=== PATIENT | female | born 1995 | race Hispanic/Latino ===

== ENCOUNTER 2019-03-19 11:48 | Emergency (ER) | payer SELFPAY ==
--- NOTE | 2019-03-19 12:57 | RAD REPORT ---
EXAM DESCRIPTION: RAD - Chest Single View - 03/19/2019 12:49 pm CLINICAL HISTORY: Chest pain COMPARISON: None. TECHNIQUE: AP portable chest image was obtained 1245 hours . FINDINGS: Lungs are clear. Heart and vasculature are normal. No measurable pleural effusion and no p neumothorax. No acute bony abnormality seen. No acute aortic findings suspected. IMPRESSION: No acute cardiopulmonary process.
--- NOTE | 2019-03-19 13:33 | ER ---
Nurse's Notes [facility] Name: Anabela Ellington Age: 24 yrs Sex: Female : 1995 Arrival Date: 03/19/2019 Time: 11:52 Bed 15 Private MD: Diagnosis: Chest pain on breathing;Chest pain, unspecified Presentation: 03/19 12:17 Presenting complaint: Patient states: Intermittent chest pain that started last night. aj1 Reports pain is worse when she takes a deep breath. Denies SOB, palpitation, cough, congestion, fever. Transition of care: patient was not received from another setting of care. Onset of symptoms was March 17, 2019. Risk Assessment: Do you want to hurt yourself or someone else? Patient reports no desire to harm self or others. Initial Sepsis Screen: Does the patient meet any 2 criteria? No. Patient's initial sepsis screen is negative. Does the patient have a suspected source of infection? No. Patient's initial sepsis screen is negative. Care prior to arrival: None. 12:17 Method Of Arrival: Ambulatory aj1 12:17 Acuity: THOMPSON 3 aj1 Triage Assessment: 12:18 General: Appears in no apparent distress. comfortable, Behavior is calm, cooperative, aj1 appropriate for age. Pain: Complains of pain in mid-sternal area. Cardiovascular: Patient's skin is warm and dry. [employer]MENTS: 12:18 LMP 02/12/2019 aj1 Historical: - Allergies: 12:18 No Known Allergies; aj1 - Home Meds: 12:18 None [Active]; aj1 - PMHx: 12:18 None; aj1 - PSHx: 12:18 Cholecystectomy; aj1 - Immunization history:: Flu vaccine is not up to date. - Social history:: Smoking status: Patient/guardian denies using tobacco. - Ebola Screening: : Patient denies travel to an Ebola-affected area in the 21 days before illness onset. Screenin:19 Abuse screen: Denies threats or abuse. Denies injuries from another. Nutritional aj1 screening: No deficits noted. Tuberculosis screening: No symptoms or risk factors identified. 13:58 Fall Risk None identified. aj1 Assessment: 12:19 General: Appears in no apparent distress. comfortable, Behavior is calm, cooperative, aj1 appropriate for age. Pain: Complains of pain in mid-sternal area Pain does not radiate. Pain currently is 3 out of 10 on a pain scale. Quality of pain is described as aching, Pain began 1 day ago. Is intermittent, Aggravated by deep breathing. Neuro: Level of Consciousness is awake, alert, obeys commands, Oriented to person, place, time, situation. Cardiovascular: Reports chest pain, Denies lightheadedness, nausea, palpitations, shortness of breath, Heart tones S1 S2 present Patient's skin is warm and dry. Rhythm is sinus rhythm. Respiratory: Airway is patent Respiratory effort is even, unlabored, Respiratory pattern is regular, symmetrical, Breath sounds are clear bilaterally. Denies shortness of breath. GI: No signs and/or symptoms were reported involving the gastrointestinal system. : No signs and/or symptoms were reported regarding the genitourinary system. EENT: No signs and/or symptoms were reported regarding the EENT system. Derm: No signs and/or symptoms reported regarding the dermatologic system. Skin is pink, warm \T\ dry. normal. Musculoskeletal: No signs and/or symptoms reported regarding the musculoskeletal system. Circulation, motion, and sensation intact. 13:02 Reassessment: Patient appears in no apparent distress at this time. No changes from aj1 previously documented assessment. Patient and/or family updated on plan of care and expected duration. Pain level reassessed. Patient is alert, oriented x 3, equal unlabored respirations, skin warm/dry/pink. 13:55 Reassessment: Patient appears in no apparent distress at this time. No changes from aj1 previously documented assessment. Patient and/or family updated on plan of care and expected duration. Pain level reassessed. Patient is alert, oriented x 3, equal unlabored respirations, skin warm/dry/pink. Vital Signs: 12:18 BP 123 / 89; Pulse 83; Resp 18; Temp 99.1; Pulse Ox 100% on R/A; Weight 60.78 kg (R); aj1 Height 5 ft. 6 in. (167.64 cm) (R); Pain 3/10; 13:02 BP 122 / 75; Pulse 98; Resp 18; Pulse Ox 100% on R/A; aj1 13:56 BP 118 / 65; Pulse 88; Resp 18; Pulse Ox 99% on R/A; aj1 12:18 Body Mass Index 21.63 (60.78 kg, 167.64 cm) aj1 ED Course: 11:52 Patient arrived in ED. am2 11:58 Roosevelt Jenkisn PA is PHCP. jr8 11:58 Demond Fontanez MD is Attending Physician. jr8 12:16 Gayle Gilmore, RN is Primary Nurse. aj1 12:18 Triage completed. aj1 12:18 Arm band placed on Patient placed in an exam room. aj1 12:19 Patient has correct armband on for positive identification. ekg monitor tech on. Pulse aj1 ox on. NIBP on. 12:19 No provider procedures requiring assistance completed. Patient maintains SpO2 aj1 saturation greater than 95% on room air. 12:39 EKG done, by military technology manager. reviewed by Demond Fontanez MD. at1 13:04 Urine collected: clean catch specimen, cloudy. mb4 13:36 Verbal reassurance given. mb4 13:36 Curtain closed for privacy. mb4 13:57 Patient did not have IV access during this emergency room visit. aj1 Administered Medications: No medications were administered Outcome: 13:32 Discharge ordered by . jr8 13:57 Discharged to home ambulatory. aj1 13:57 Condition: good 13:57 Discharge instructions given to patient, Instructed on discharge instructions, follow up and referral plans. medication usage, Demonstrated understanding of instructions, follow-up care, medications, Prescriptions given X 1. 13:58 Patient left the ED. aj1 Signatures: Gayle Gilmore, RN RN aj1 Roosevelt Jenkins PA PA jr8 Jacki Aragon, internal communications intern EKG Tat1 Jacki Alejo am2 Denice Ricketts mb4
--- NOTE | 2019-03-19 13:34 | EDPHYS ---
Physician Documentation [facility] Name: Anabela Ellington Age: 24 yrs Sex: Female : 1995 Arrival Date: 03/19/2019 Time: 11:52 Bed 15 Private MD: ED Physician Demond Fontanez HPI: 03/19 12:36 This 24 yrs old Female presents to ER via Ambulatory with complaints of Chest jr8 Pain - sharp. 12:36 Onset: The symptoms/episode began/occurred last night. Associated signs and symptoms: jr8 The patient has no apparent associated signs or symptoms. Modifying factors: The patient symptoms are alleviated by nothing, the patient symptoms are aggravated by deep breaths. Pt reports last night at about 2200 she got a sharp pain in her chest that is made worse by breathing and moving as well as palpation. Pt states episodes of severe pain last about 5 minutes but has some sharp pain that is continuous. Denies any associated sx of N/V or diaphoresis . 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 - Social history:: Smoking status: Patient/guardian denies using tobacco. - Ebola Screening: : Patient denies travel to an Ebola-affected area in the 21 days before illness onset. ROS: 12:36 Constitutional: Negative for fever, chills, and weight loss, Eyes: Negative for injury, jr8 pain, redness, and discharge, ENT: Negative for injury, pain, and discharge, Neck: Negative for injury, pain, and swelling, Cardiovascular: Negative for chest pain, palpitations, and edema, Respiratory: Negative for shortness of breath, cough, wheezing, and pleuritic chest pain, Abdomen/GI: Negative for abdominal pain, nausea, vomiting, diarrhea, and constipation, Back: Negative for injury and pain, MS/Extremity: Negative for injury and deformity, Skin: Negative for injury, rash, and discoloration, Neuro: Negative for headache, weakness, numbness, tingling, and seizure. 12:36 Cardiovascular: Positive for chest pain, of the mid-sternal area. Exam: 12:36 Constitutional: This is a well developed, well nourished patient who is awake, alert, jr8 and in no acute distress. Head/Face: Normocephalic, atraumatic. Eyes: Pupils equal round and reactive to light, extra-ocular motions intact. Lids and lashes normal. Conjunctiva and sclera are non-icteric and not injected. Cornea within normal limits. Periorbital areas with no swelling, redness, or edema. ENT: Nares patent. No nasal discharge, no septal abnormalities noted. Tympanic membranes are normal and external auditory canals are clear. Oropharynx with no redness, swelling, or masses, exudates, or evidence of obstruction, uvula midline. Mucous membranes moist. Neck: Trachea midline, no thyromegaly or masses palpated, and no cervical lymphadenopathy. Supple, full range of motion without nuchal rigidity, or vertebral point tenderness. No Meningismus. Chest/axilla: Normal chest wall appearance and motion. Nontender with no deformity. No lesions are appreciated. Cardiovascular: Regular rate and rhythm with a normal S1 and S2. No gallops, murmurs, or rubs. Normal PMI, no JVD. No pulse deficits. Respiratory: Lungs have equal breath sounds bilaterally, clear to auscultation and percussion. No rales, rhonchi or wheezes noted. No increased work of breathing, no retractions or nasal flaring. Abdomen/GI: Soft, non-tender, with normal bowel sounds. No distension or tympany. No guarding or rebound. No evidence of tenderness throughout. Back: No spinal tenderness. No costovertebral tenderness. Full range of motion. Skin: Warm, dry with normal turgor. Normal color with no rashes, no lesions, and no evidence of cellulitis. MS/ Extremity: Pulses equal, no cyanosis. Neurovascular intact. Full, normal range of motion. Neuro: Awake and alert, GCS 15, oriented to person, place, time, and situation. Cranial nerves II-XII grossly intact. Motor strength 5/5 in all extremities. Sensory grossly intact. Cerebellar exam normal. Normal gait. Vital Signs: 12:18 BP 123 / 89; Pulse 83; Resp 18; Temp 99.1; Pulse Ox 100% on R/A; Weight 60.78 kg (R); aj1 Height 5 ft. 6 in. (167.64 cm) (R); Pain 3/10; 13:02 BP 122 / 75; Pulse 98; Resp 18; Pulse Ox 100% on R/A; aj1 13:56 BP 118 / 65; Pulse 88; Resp 18; Pulse Ox 99% on R/A; aj1 12:18 Body Mass Index 21.63 (60.78 kg, 167.64 cm) [facility] MDM: 11:59 Patient medically screened. [facility] 13:31 Data reviewed: vital signs, nurses notes, EKG, radiologic studies, plain films. Data [facility] interpreted: Pulse oximetry: on room air is 100 %. Interpretation: normal. Counseling: I had a detailed discussion with the patient and/or guardian regarding: the historical points, exam findings, and any diagnostic results supporting the discharge/admit diagnosis, radiology results, the need for outpatient follow up, a family practitioner, to return to the emergency department if symptoms worsen or persist or if there are any questions or concerns that arise at home. Response to treatment: the patient's symptoms have mildly improved after treatment. 03/19 13:06 Order name: Urine Dipstick--Ancillary (enter results) 03/19 13:06 Order name: Urine --Ancillary (enter results) 03/19 12:28 Order name: XRAY Chest (1 view) [facility] 03/19 12:28 Order name: EKG - Nurse/Tech; Complete Time: 12:28 [facility] 03/19 13:48 Order name: Urine --Ancillary [facility] 03/19 13:48 Order name: Urine Dipstick-Ancillary [facility] 03/19 12:29 Order name: Urine Test (obtain specimen); Complete Time: 12:57 [facility] 03/19 12:29 Order name: Urine Dipstick-Ancillary (obtain specimen); Complete Time: 12:57 [facility] Administered Medications: No medications were administered Disposition: 03/20 07:56 Co-signature as Attending Physician, Demond Fontanez MD I agree with the assessment and kdr plan of care. Disposition: 03/19/19 13:32 Discharged to Home. Impression: Chest pain on breathing, Chest pain, unspecified. - Condition is Stable. - Discharge Instructions: Nonspecific Chest Pain, Chest Wall Pain. - Prescriptions for Mobic 7.5 mg Oral Tablet - take 1 tablet by ORAL route once daily take with food; 20 tablet. - Medication Reconciliation Form, Thank You Letter, Antibiotic Education, Prescription Opioid Use form. - Follow up: Private Physician; When: 5 - 6 days; Reason: Recheck today's complaints, Continuance of care, Re-evaluation by your physician. - Problem is new. - Symptoms have improved. Signatures: Dispatcher [employer] EDGayle Brantley RN RN aj1 Demond Fontanze MD MD kdr Roszak, Josh, PA PA jr8 Corrections: (The following items were deleted from the chart) 03/19 13:58 13:32 03/19/2019 13:32 Discharged to Home. Impression: Chest pain on breathing; Chest aj1 pain, unspecified. Condition is Stable. Forms are Medication Reconciliation Form, Thank You Letter, Antibiotic Education, Prescription Opioid Use. Follow up: Private Physician; When: 5 - 6 days; Reason: Recheck today's complaints, Continuance of care, Re-evaluation by your physician. Problem is new. Symptoms have improved. jr8
[2019-03-19 13:44] LABS: Urine Blood TRACE (NEG); Urine Glucose NEGATIVE (NEG); Urine Protein NEGATIVE (NEG)
[2019-03-19] MEDS ORDERED: Ringers Lactate 1,000 ML IV ONE (15:35)
[2019-03-19 15:56] VITALS: TEMP 99.1
[2019-03-19 15:58] VITALS: BP 118/65; O2SAT 99
--- NOTE | 2019-03-20 10:34 | EKG ---
Test Date: 2019-03-19 Test Time: 12:05:51 Hand Crown Pouncer: WAGNER MEASUREMENT RESULTS: Intervals: Rate: 89 NC: 140 QRSD: 66 QT: 362 QTc: 440 Kelly: P: 52 NC: 140 QRS: 79 T: 49 INTERPRETIVE STATEMENTS: Normal sinus rhythm Normal ECG No previous ECG available for comparison Electronically Signed On 03-20-19 10:31:47 CDT by Darrell Rowley
== END 2019-03-19 13:58 | disposition home or self-care (01) ==
LOC: ER 11:48
DX: R07.1 Chest pain on breathing (principal)
CPT/HCPCS: 71045; 81003; 81025; 93005; 99285

== ENCOUNTER 2020-11-01 06:08 | Emergency (ER) | payer SELFPAY ==
[2020-11-01 06:51] LABS: Urine Blood 2+ (Negative); Urine Glucose Negative (Negative); Urine Protein Negative (Negative); Urine Specific Gravity 1.025 (1.005-1.030); Urine pH 5.5 (5.0-7.0)
[2020-11-01 06:59] LABS: Absolute Lymphocytes (CBC) 2.2 K/uL (0.7-4.9); Basophils % 0.7 % (0-1.3); Hematocrit 41.3 % (36.0-45.0); Lymphocytes % 23.4 % (15.3-44.8); MPV 8.7 fL (7.6-11.3); RBC Red Blood Cell Count 4.73 M/uL (3.86-4.86)
[2020-11-01 07:11] LABS: ALT/SGPT 33 U/L (12-78); AST/SGOT 22 U/L (15-37); Albumin 4.1 g/dL (3.4-5.0); Alkaline Phosphatase 53 U/L (45-117); BUN Blood Urea Nitrogen 7 mg/dL (7-18); Bicarbonate 24 mmol/L (21-32); Bilirubin Direct 0.2 mg/dL (0-0.2); Glucose Level 91 mg/dL (74-106); Lipase 91 U/L (73-393); Potassium 3.6 mmol/L (3.5-5.1); Protein, Total 8.8 g/dL (6.4-8.2); Sodium Level 138 mmol/L (136-145)
--- NOTE | 2020-11-01 08:14 | RAD REPORT ---
EXAM DESCRIPTION: CT - Abdomen Pelvis W Contrast - 11/01/2020 7:39 am CLINICAL HISTORY: ABD PAIN COMPARISON: <Comparisons> TECHNIQUE: Biphasic, helical CT imaging of the abdomen and pelvis was performed following 100 ml non -ionic IV contrast. No oral contrast administered. All CT scans are performed using dose optimization technique as appropriate and may include automated exposure control or mA/KV adjustment according to patient size. FINDINGS: No suspicious findings in the lung bases. The liver, spleen, and pancreas show no suspicious findings. Gallbladder and biliary tree are also wi thout suspicious finding. Symmetric renal function is seen with no hydronephrosis or suspicious renal mass. No pyelonephritis o r acute parenchymal process. No bladder abnormalities. No adrenal abnormalities. No gastric dilatation or gastric wall thickening. No dilated small bowel loops. There is fecalized lisa wel content in the distal ileum. A fully intact common normal appendix cannot be confirmed. Proximal appendix appears to be normal near the tip of the cecum. There is some enhancement of the wall. Dista l appendix is not clearly defined. There is some fluid in stranding in the right lower quadrant. Righ t ovary is prominent in size. Ovary is isodense to adjacent on opacified bowel loops. Small amount of free fluid is present in the cul de sac within physiologic limits. There is an involuting [address] left ovarian cyst present. No uterine abnormality. No free air or pneumatosis. No other site of inflammatory stranding. No hernia, mass or bulky lymp hadenopathy. No suspicious bony findings. IMPRESSION: Patient has an abnormal appearance to the right lower quadrant. There is some fluid and stranding in the fatty tissues and the appendix cannot be confirmed as normal along its entire course . Prominent right ovary is present but is isodense to surrounding unopacified bowel and difficult to fu lly characterize. Small involuting cyst present in the left ovary. Appendicitis cannot be excluded based on CT imaging and correlation is needed with any supporting cli nical or laboratory findings. A ruptured or hemorrhagic right ovarian cyst could potentially explain the fluid in stranding. Endovaginal sonography may possibly be helpful to try to better characterize the ovaries.
[2020-11-01 08:36] LABS: Urine Specific Gravity/Preg 1.025 (1.005-1.030)
--- NOTE | 2020-11-01 10:39 | RAD REPORT ---
EXAM DESCRIPTION: US - Transvaginal Study Probe - 11/01/2020 10:31 am CLINICAL HISTORY: ABD PAIN COMPARISON: No comparisons TECHNIQUE: Endovaginal sonography was performed. FINDINGS: Tri laminar pattern of a 12 millimeter thick endometrium seen. This is normal with no mass , polyp or abnormal fluid collection in the endometrial cavity. No myometrial mass. Uterus is normal at 6.5 x 3.9 x 5.5 cm. No blood or fluid in the cul de sac. Both ovaries are identified and normal in size. Doppler evaluation shows normal blood flow within the ovarian stroma. IMPRESSION: Negative endovaginal pelvic ultrasound.
--- NOTE | 2020-11-01 12:35 | ER ---
Nurse's Notes [facility] Name: Anabela Ellington Age: 25 yrs Sex: Female : 1995 Arrival Date: 11/01/2020 Time: 06:11 Bed 18 Private MD: Diagnosis: Abdominal tenderness;Other ovarian cysts-right ovarian cyst rupture Presentation: 11/01 06:53 Chief complaint: Patient states: Reports she started having abdominal pain and a few ea episodes of diarrhea. Coronavirus screen: At this time, the client does not indicate any symptoms associated with coronavirus-19. Ebola Screen: No symptoms or risks identified at this time. Initial Sepsis Screen: Does the patient meet any 2 criteria? No. Patient's initial sepsis screen is negative. Does the patient have a suspected source of infection? No. Patient's initial sepsis screen is negative. Risk Assessment: Do you want to hurt yourself or someone else? Patient reports no desire to harm self or others. Onset of symptoms was November 01, 2020. 06:53 Method Of Arrival: Ambulatory ea 06:53 Acuity: THOMPSON 3 ea Triage Assessment: 06:56 General: Appears uncomfortable, Behavior is calm, cooperative, appropriate for age. ea Pain: Complains of pain in abdomen. Neuro: Level of Consciousness is awake, alert, obeys commands, Oriented to person, place, time. Cardiovascular: Patient's skin is warm and dry. GI: Abdomen is non-distended. Derm: Skin is pink, warm \\T\\ dry. 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 - Social history:: Smoking status: Patient denies any tobacco usage or history of. - Family history:: not pertinent. - Hospitalizations: : No recent hospitalization is reported. Screenin:55 Abuse screen: Denies threats or abuse. Nutritional screening: No deficits noted. ea Tuberculosis screening: No symptoms or risk factors identified. Fall Risk None identified. Assessment: 07:03 General: Appears in no apparent distress. Behavior is calm, cooperative, appropriate ea for age. Pain: Complains of pain in right upper quadrant and left upper quadrant. Neuro: Level of Consciousness is awake, alert, obeys commands, Oriented to person, place, time. Cardiovascular: Patient's skin is warm and dry. Respiratory: Airway is patent Respiratory effort is even, unlabored, Respiratory pattern is regular, symmetrical. Derm: Skin is pink, warm \\T\\ dry. 07:44 Reassessment: Received report from IMELDA Borrero. Pt denies pain, no concerns at this time. ld1 09:37 Reassessment: Patient and/or family updated on plan of care and expected duration. Pain ld1 level reassessed. Patient is alert, oriented x 3, equal unlabored respirations, skin warm/dry/pink. Patient denies any concerns at this time. Notified we are waiting on results. Patient denies pain at this time. 10:40 Reassessment: Patient and/or family updated on plan of care and expected duration. Pain ld1 level reassessed. Patient is alert, oriented x 3, equal unlabored respirations, skin warm/dry/pink. Patient denies pain at this time. 12:24 Reassessment: Patient and/or family updated on plan of care and expected duration. Pain ld1 level reassessed. Patient is alert, oriented x 3, equal unlabored respirations, skin warm/dry/pink. Pt waiting with at bedside for results. Denies any concerns at this time. States "pain went away and hasn't come back." Patient denies pain at this time. 12:30 Reassessment: ERP at bedside discussing POC. ld1 12:45 GI: Bowel sounds present X 4 quads. Abd is soft X 4 quads Abdomen is tender to ld1 palpation in right upper quadrant and left upper quadrant. Vital Signs: 06:53 BP 122 / 83; Pulse 80; Resp 18; Temp 97.6; Pulse Ox 99% ; ea 07:45 BP 110 / 75; Pulse 91; Resp 18; Pulse Ox 100% on R/A; Pain 0/10; ld1 09:37 BP 109 / 74; Pulse 105; Resp 18; Pulse Ox 99% on R/A; Pain 0/10; ld1 10:41 BP 112 / 73; Pulse 91; Resp 18; Pulse Ox 100% on R/A; Pain 0/10; ld1 12:24 BP 118 / 92; Pulse 90; Resp 18; Pulse Ox 100% on R/A; Pain 0/10; ld1 ED Course: 06:11 Patient arrived in ED. bp1 06:25 Scotty Vines MD is Attending Physician. rn 06:55 Triage completed. ea 06:55 Patient has correct armband on for positive identification. Bed in low position. Call ea light in reach. Side rails up X2. 06:56 Arm band placed on right wrist. Patient placed in an exam room, on a stretcher, on ea pulse oximetry. 06:57 No provider procedures requiring assistance completed. Inserted saline lock: 20 gauge ea in left antecubital area, using aseptic technique. Blood collected. 07:09 Annie Morales, RN is Primary Nurse. ld1 07:39 CT Abd/Pelvis - IV Contrast Only In Process Unspecified. EDMS 08:09 Attending Physician role handed off by Scotty Vines MD sona 08:09 Fredrick Drake MD is Attending Physician. sona 10:32 Transvaginal Study (probe) In Process Unspecified. EDMS 12:34 Rosas Wong MD is Referral Physician. sona 12:34 Alex Bess MD is Referral Physician. sona 12:45 IV discontinued, bleeding controlled, No redness/swelling at site. ld1 Administered Medications: 12:30 Drug: TORadol (ketorolac) 30 mg Route: IVP; Site: left antecubital; ld1 Outcome: 12:35 Discharge ordered by . sona 12:45 Discharged to home ambulatory. ld1 12:45 Condition: stable 12:45 Instructed on discharge instructions, follow up and referral plans. medication usage, Demonstrated understanding of instructions, follow-up care, medications. 12:46 Patient left the ED. ld1 Signatures: Dispatcher [employer] EDFL Fredrick Drake MD MD cha Nieto, Roman, MD MD rn Antunez, Elena, RN RN Ainsley Stephens [facility] Annie Morales, IMELDA RN ld1
--- NOTE | 2020-11-01 12:36 | EDPHYS ---
Physician Documentation [facility] Name: Anabela Ellington Age: 25 yrs Sex: Female : 1995 Arrival Date: 11/01/2020 Time: 06:11 Bed 18 Private MD: DIANELYS Physician Fredrick Drake HPI: 11/01 07:10 This 25 yrs old Female presents to ER via Ambulatory with complaints of rn Abdominal Pain. 07:10 The patient presents with abdominal pain. The patient presents with abdominal pain in rn the epigastric area. Onset: The symptoms/episode began/occurred yesterday. The symptoms do not radiate. Associated signs and symptoms: Pertinent positives: diarrhea, Pertinent negatives: blood in stools, fever. The symptoms are described as crampy, intermittent, sharp. Modifying factors: The symptoms are alleviated by nothing, the symptoms are aggravated by nothing. Severity of pain: At its worst the pain was moderate in the emergency department the pain has improved. The patient has not experienced similar symptoms in the past. The patient has not recently seen a physician. LOG SCALER: 07:03 LMP 10/23/2020 ea Historical: - Allergies: 06:55 No Known Allergies; ea - Home Meds: 06:55 None [Active]; ea - PMHx: 06:55 None; ea - PSHx: 06:55 Cholecystectomy; ea - Immunization history:: Adult Immunizations up to date. - Social history:: Smoking status: Patient denies any tobacco usage or history of. - Family history:: not pertinent. - Hospitalizations: : No recent hospitalization is reported. ROS: 07:10 Constitutional: Negative for fever, chills, and weight loss, Eyes: Negative for injury, rn pain, redness, and discharge, Cardiovascular: Negative for chest pain, palpitations, and edema, Respiratory: Negative for shortness of breath, cough, wheezing, and pleuritic chest pain, Abdomen/GI: + abd pain and diarrhea Back: Negative for injury and pain, : Negative for injury, bleeding, discharge, and swelling, MS/Extremity: Negative for injury and deformity, Skin: Negative for injury, rash, and discoloration, Neuro: Negative for headache, weakness, numbness, tingling, and seizure. Exam: 07:10 Constitutional: This is a well developed, well nourished patient who is awake, alert, rn and in no acute distress. Head/Face: Normocephalic, atraumatic. Cardiovascular: Regular rate and rhythm. No pulse deficits. Respiratory: No increased work of breathing, no retractions or nasal flaring. Abdomen/GI: soft, mild epigastric tenderness and periumbilical tenderness Skin: Warm, dry with normal turgor. Normal color with no rashes, no lesions, and no evidence of cellulitis. MS/ Extremity: Pulses equal, no cyanosis. Neurovascular intact. Full, normal range of motion. Equal circumference. Neuro: Awake and alert, GCS 15, oriented to person, place, time, and situation. Cranial nerves II-XII grossly intact. Motor strength 5/5 in all extremities. Sensory grossly intact. Vital Signs: 06:53 BP 122 / 83; Pulse 80; Resp 18; Temp 97.6; Pulse Ox 99% ; ea 07:45 BP 110 / 75; Pulse 91; Resp 18; Pulse Ox 100% on R/A; Pain 0/10; ld1 09:37 BP 109 / 74; Pulse 105; Resp 18; Pulse Ox 99% on R/A; Pain 0/10; ld1 10:41 BP 112 / 73; Pulse 91; Resp 18; Pulse Ox 100% on R/A; Pain 0/10; ld1 12:24 BP 118 / 92; Pulse 90; Resp 18; Pulse Ox 100% on R/A; Pain 0/10; ld1 MDM: 06:25 Patient medically screened. rn 09:26 Differential diagnosis: Menorrhagia, non-specific abd pain, Ovarian Torsion, sona pancreatitis, Pelvic Inflammatory Disease, Tubal Ovarian Abcess, Ureterolithiasis, urinary tract infection. Data reviewed: vital signs, nurses notes, lab test result(s), radiologic studies, CT scan. Data interpreted: virtual customer assistant: rate is 91 beats/min, rhythm is regular, Pulse oximetry: on room air is 100 %. Test interpretation: by ED physician or midlevel provider:. Counseling: I had a detailed discussion with the patient and/or guardian regarding: the historical points, exam findings, and any diagnostic results supporting the discharge/admit diagnosis, lab results, radiology results. 11/01 06:27 Order name: Basic Metabolic Panel rn 11/01 06:27 Order name: CBC with Diff rn 11/01 06:27 Order name: Hepatic Function; Complete Time: 07:33 rn 11/01 06:27 Order name: Lipase; Complete Time: 07:33 rn 11/01 06:27 Order name: Basic Metabolic Panel; Complete Time: 07:33 EDMS 11/01 06:27 Order name: CBC with Automated Diff; Complete Time: 07:33 EDTX 11/01 06:27 Order name: IV Saline Lock; Complete Time: 07:10 rn 11/01 06:27 Order name: Labs collected and sent; Complete Time: 07:10 rn 11/01 06:27 Order name: Urine Test (obtain specimen); Complete Time: 07:10 rn 11/01 06:37 Order name: CT Abd/Pelvis - IV Contrast Only; Complete Time: 09:25 rn 11/01 06:51 Order name: Urine Dipstick-Ancillary; Complete Time: 07:33 EDTX 11/01 06:51 Order name: Urine --Ancillary (enter results); Complete Time: 09:25 [facility] 11/01 09:26 Order name: Transvaginal Study (probe); Complete Time: 12:25 [facility] 11/01 06:27 Order name: Urine Dipstick-Ancillary (obtain specimen); Complete Time: 07:10 rn Administered Medications: 12:30 Drug: TORadol (ketorolac) 30 mg Route: IVP; Site: left antecubital; ld1 Disposition: 11/01/20 12:35 Discharged to Home. Impression: Abdominal tenderness, Other ovarian cysts - right ovarian cyst rupture. - Condition is Stable. - Discharge Instructions: Abdominal Pain, Adult, Ovarian Cyst, Abdominal Pain, Adult, [id number], Ovarian Cyst, [id number], Appendicitis, [id number]. - Prescriptions for Motrin IB 200 mg Oral Tablet - take 2 tablet by ORAL route every 6 hours As needed as needed with food; 30 tablet. - Medication Reconciliation Form, Thank You Letter, Antibiotic Education, Prescription Opioid Use form. - Follow up: Rosas Wong MD; When: 2 - 3 days; Reason: Recheck today's complaints, Re-evaluation by your physician. Follow up: Alex Bess MD; When: Tomorrow; Reason: Recheck today's complaints, Re-evaluation by your physician. - Problem is new. - Symptoms have improved. Signatures: Dispatcher [employer] EDFredrick Ferguson MD MD cha Nieto, Roman, MD MD rn Antunez, Elena RN Annie Ruth ea, RN RN ld1 Corrections: (The following items were deleted from the chart) 12:46 12:35 11/01/2020 12:35 Discharged to Home. Impression: Abdominal tenderness; Other ld1 ovarian cysts - right ovarian cyst rupture. Condition is Stable. Forms are Medication Reconciliation Form, Thank You Letter, Antibiotic Education, Prescription Opioid Use. Follow up: Rosas Wong; When: 2 - 3 days; Reason: Recheck today's complaints, Re-evaluation by your physician. Follow up: Alex Bess; When: Tomorrow; Reason: Recheck today's complaints, Re-evaluation by your physician. Problem is new. Symptoms have improved. sona
[2020-11-01 12:56] VITALS: TEMP 97.6
[2020-11-01] MEDS ORDERED: KETOROLAC 30 MG/ML INJ ONE (12:57)
[2020-11-01 13:10] VITALS: O2SAT 100
[2020-11-01 13:12] VITALS: BP 118/92
== END 2020-11-01 12:46 | disposition home or self-care (01) ==
LOC: ER 06:08
DX: N83.291 Other ovarian cyst, right side (principal)
CPT/HCPCS: 36415; 74177; 76830; 80048; 80076; 81003; 81025; 83690; 85025; 96374; 99284; Q9967

== ENCOUNTER 2021-01-15 10:20 | Emergency (ER) | payer SELFPAY ==
[2021-01-15 11:15] LABS: Absolute Lymphocytes (CBC) 2.5 K/uL (0.7-4.9); Basophils % 0.7 % (0-1.3); Hematocrit 39.1 % (36.0-45.0); Lymphocytes % 36.6 % (15.3-44.8); MPV 8.6 fL (7.6-11.3); RBC Red Blood Cell Count 4.46 M/uL (3.86-4.86)
[2021-01-15 11:30] LABS: Urine Blood 1+ (Negative); Urine Glucose Negative (Negative); Urine Protein Negative (Negative)
[2021-01-15] MEDS ORDERED: NA CHLORIDE 0.9% 1,000 ML ONE (11:33)
[2021-01-15 11:35] LABS: BUN Blood Urea Nitrogen 10 mg/dL (7-18); Bicarbonate 24 mmol/L (21-32); Glucose Level 102 mg/dL (74-106); Potassium 3.2 mmol/L (3.5-5.1); Sodium Level 141 mmol/L (136-145); Troponin (Emerg Dept Use Only) < 0.02 ng/mL (0.0-0.045)
[2021-01-15] MEDS ORDERED: DIAZEPAM 2 MG TABLET PO ONE (12:00)
[2021-01-15] MEDS ORDERED: POTASSIUM CL SA 10 MEQ TAB PO ONE (12:17)
--- NOTE | 2021-01-15 13:25 | RAD REPORT ---
EXAM DESCRIPTION: RAD - Chest Single View - 01/15/2021 1:01 pm CLINICAL HISTORY: DYSPNEA Chest pain. COMPARISON: Chest Single View dated 03/19/2019 FINDINGS: Portable technique limits examination quality. The lungs are grossly clear. The heart is normal in size. No displaced fractures. IMPRESSION: No acute intrathoracic process suspected.
--- NOTE | 2021-01-15 13:55 | ER ---
Nurse's Notes [facility] Name: Cynthia Ellington Age: 25 yrs Sex: Female : 1995 Arrival Date: 01/15/2021 Time: 10:22 Bed 16 Private MD: Diagnosis: Dyspnea, unspecified Presentation: 01/15 10:33 Chief complaint: Patient states: SOB started at 7 am after awaking to go use the 1 restroom. No cough or fever. No N/V/D. States she drank a little yesterday, but denies drug use. Coronavirus screen: Client denies travel out of the [place] in the last 14 days. difficulty breathing, shortness of breath, Client presents with at least one sign or symptom that may indicate coronavirus-19. Standard/surgical mask placed on the client. Ebola Screen: Patient denies travel to an Ebola-affected area in the 21 days before illness onset. Initial Sepsis Screen: Does the patient meet any 2 criteria? HR > 90 bpm. No. Patient's initial sepsis screen is negative. Does the patient have a suspected source of infection? No. Patient's initial sepsis screen is negative. Risk Assessment: Do you want to hurt yourself or someone else? Patient reports no desire to harm self or others. Onset of symptoms was January 15, 2021. 10:33 Method Of Arrival: Ambulatory [facility] 10:33 Acuity: THOMPSON 3 ll1 Triage Assessment: 12:39 Respiratory: Reports shortness of breath at rest Onset: The symptoms/episode tr6 began/occurred this morning, Historical: - Allergies: 10:35 No Known Allergies; ll1 - PMHx: 10:35 None; ll1 - PSHx: 10:35 Cholecystectomy; ll1 - Immunization history:: Client reports having NOT received the Covid vaccine. Flu vaccine is up to date. - Social history:: Smoking status: Patient denies any tobacco usage or history of. - Family history:: not pertinent. - Hospitalizations: : No recent hospitalization is reported. Screenin:38 Abuse screen: Denies threats or abuse. Denies injuries from another. Nutritional tr6 screening: No deficits noted. Tuberculosis screening: No symptoms or risk factors identified. Fall Risk None identified. Assessment: 12:39 Respiratory: Airway is patent. tr6 12:39 General: Appears distressed, uncomfortable, Behavior is anxious, Smells of. Pain: tr6 Denies pain. Neuro: No deficits noted. Cardiovascular: Rhythm is sinus tachycardia. Respiratory: Respiratory effort is even, unlabored, Breath sounds are clear. GI: No deficits noted. : No deficits noted. EENT: No deficits noted. Derm: No deficits noted. Musculoskeletal: No deficits noted. Vital Signs: 10:33 BP 110 / 79; Pulse 111; Resp 18; Temp 97.8; Pulse Ox 100% ; Weight 72.57 kg; Height 5 ll1 ft. 6 in. (167.64 cm); Pain 0/10; 12:00 BP 103 / 68; Pulse 103; Resp 20; Pulse Ox 100% on R/A; tr6 10:33 Body Mass Index 25.82 (72.57 kg, 167.64 cm) ll1 ED Course: 10:22 Patient arrived in ED. mr 10:25 Scotty Vines MD is Attending Physician. rn 10:35 Triage completed. ll1 10:35 Arm band placed on Patient placed in an exam room, on a stretcher. ll1 10:46 EKG done, by ED staff, reviewed by Scotty Vines MD. dh3 11:01 Jerrica Varner, IMELDA is Primary Nurse. tr6 12:38 Patient has correct armband on for positive identification. Bed in low position. Call tr6 light in reach. Side rails up X 1. Pulse ox on. NIBP on. Noise minimized. Visitors limited. Lights dimmed. Moved to private room. 12:38 No provider procedures requiring assistance completed. Inserted saline lock: 18 gauge tr6 in left antecubital area, using aseptic technique. Blood collected. 13:01 XRAY Chest (1 view) In Process Unspecified. EDMS 14:05 IV discontinued, intact, bleeding controlled, No redness/swelling at site. Pressure tr6 dressing applied. Administered Medications: 11:12 Drug: NS 0.9% 1000 ml Route: IV; Rate: 1000 ml; Site: left forearm; tr6 12:07 Follow up: IV Status: Completed infusion; IV Intake: 1000ml tr6 12:07 Drug: Valium (diazepam) 2 mg Route: PO; tr6 12:07 Drug: Potassium Chloride 40 mEq Route: PO; tr6 Intake: 12:07 IV: 1000ml; Total: 1000ml. tr6 Outcome: 13:54 Discharge ordered by . rn 14:05 Discharged to home ambulatory. tr6 14:05 Condition: stable 14:05 Discharge instructions given to patient, Instructed on discharge instructions, follow up and referral plans. 14:16 Patient left the ED. tr6 Signatures: Dispatcher [employer] EDStephanie Shields Roman, MD MD rn [place], [place] [id number] Donny Nascimento RN RN [facility] Jerrica Varner RN RN tr6
--- NOTE | 2021-01-15 13:56 | EDPHYS ---
Physician Documentation [facility] Name: Cynthia Ellington Age: 25 yrs Sex: Female : 1995 Arrival Date: 01/15/2021 Time: 10:22 Bed 16 Private MD: ED Physician Scotty Vines HPI: 01/15 10:33 This 25 yrs old Female presents to ER via Unassigned with complaints of rn Breathing Difficulty. 10:33 The patient has shortness of breath at rest, that woke him/her from sleep. Onset: The rn symptoms/episode began/occurred this morning. Duration: The symptoms are continuous. The patient's shortness of breath is aggravated by nothing, is alleviated by nothing. Associated signs and symptoms: Pertinent positives: This patient does not have any pertinent positive signs or symptoms associated with shortness of breath. Pertinent negatives: chest pain, non-productive cough, productive cough, diaphoresis, dizziness, fever, hemoptysis, loss of consciousness, vomiting. Severity of symptoms: At their worst the symptoms were moderate in the emergency department the symptoms are unchanged. The patient has not experienced similar symptoms in the past. The patient has not recently seen a physician. Reports woke up feeling sob, never happened before, no trauma, no fever/cough/hemoptysis, no runny nose/sore throat. Doesn't feel sick. Has not been covid vaccinated. NO abd pain/vomiting/diarrhea. . Historical: - Allergies: 10:35 No Known Allergies; ll1 - PMHx: 10:35 None; ll1 - PSHx: 10:35 Cholecystectomy; ll1 - Immunization history:: Client reports having NOT received the Covid vaccine. Flu vaccine is up to date. - Social history:: Smoking status: Patient denies any tobacco usage or history of. - Family history:: not pertinent. - Hospitalizations: : No recent hospitalization is reported. ROS: 10:33 Constitutional: Negative for fever, chills, and weight loss, Eyes: Negative for injury, rn pain, redness, and discharge, ENT: Negative for injury, pain, and discharge, Neck: Negative for injury, pain, and swelling, Cardiovascular: Negative for chest pain, and edema, Respiratory: + sob, neg for cough Abdomen/GI: Negative for abdominal pain, nausea, vomiting, diarrhea, and constipation, Back: Negative for injury and pain, : Negative for injury, bleeding, discharge, and swelling, MS/Extremity: Negative for injury and deformity, Skin: Negative for injury, rash, and discoloration, Neuro: Negative for headache, weakness, numbness, tingling, and seizure. Exam: 10:33 Constitutional: This is a well developed, well nourished patient who is awake, alert, rn seems anxious Head/Face: Normocephalic, atraumatic. Eyes: Pupils equal round and reactive to light, extra-ocular motions intact. Lids and lashes normal. Conjunctiva and sclera are non-icteric and not injected. Cornea within normal limits. Periorbital areas with no swelling, redness, or edema. ENT: dry MM, no stridor Neck: Trachea midline, no thyromegaly or masses palpated, and no cervical lymphadenopathy. Supple, full range of motion without nuchal rigidity, or vertebral point tenderness. No Meningismus. Cardiovascular: Tachycardic, regular Respiratory: Mild tachypnea, speaking full sentences. No retractions. Abdomen/GI: soft, non-tender Skin: Warm, dry MS/ Extremity: Pulses equal, no cyanosis. Neuro: Awake and alert, GCS 15, oriented to person, place, time, and situation. Cranial nerves II-XII grossly intact. Motor strength 5/5 in all extremities. Sensory grossly intact. Cerebellar exam normal. Normal gait. Vital Signs: 10:33 BP 110 / 79; Pulse 111; Resp 18; Temp 97.8; Pulse Ox 100% ; Weight 72.57 kg; Height 5 ll1 ft. 6 in. (167.64 cm); Pain 0/10; 12:00 BP 103 / 68; Pulse 103; Resp 20; Pulse Ox 100% on R/A; tr6 10:33 Body Mass Index 25.82 (72.57 kg, 167.64 cm) ll1 MDM: 10:25 Patient medically screened. rn 13:50 Differential diagnosis: Anxiety Reaction Myocardial Infarction pneumonia, Pneumothorax rn Psychogenic pulmonary edema, Pulmonary Embolism reactive airway disease, thyroid abnormality. Data reviewed: vital signs, nurses notes, lab test result(s), EKG, radiologic studies, plain films, and as a result, I will discharge patient. Counseling: I had a detailed discussion with the patient and/or guardian regarding: the historical points, exam findings, and any diagnostic results supporting the discharge/admit diagnosis, lab results, radiology results, the need for outpatient follow up, to return to the emergency department if symptoms worsen or persist or if there are any questions or concerns that arise at home. Special discussion: I discussed with the patient/guardian in detail that at this point there is no indication for admission to the hospital. It is understood, however, that if the symptoms persist or worsen the patient needs to return immediately for re-evaluation. ED course: No acute findings on w/u, neg d-dimer, no ischemia on ECG, neg cxr. No oxygen requirement. Symptoms resolved after valium. Return precautions given and understood. . 01/15 10:32 Order name: Basic Metabolic Panel; Complete Time: 01/15 10:32 Order name: CBC with Diff; Complete Time: 01/15 10:32 Order name: Troponin (emerg Dept Use Only); Complete Time: 01/15 10:33 Order name: D-Dimer; Complete Time: 01/15 10:33 Order name: TSH; Complete Time: rn 01/15 10:32 Order name: XRAY Chest (1 view); Complete Time: 13:45 rn 01/15 10:33 Order name: T4 Free; Complete Time: 01/15 11:30 Order name: Urine Dipstick-Ancillary; Complete Time: 11:43 [facility] 01/15 11:31 Order name: Urine Dipstick-Ancillary [facility] 01/15 12:22 Order name: SARS-COV-2 RT PCR; Complete Time: 12:44 EDIN 01/15 10:32 Order name: EKG; Complete Time: 10:33 rn 01/15 10:32 Order name: Cardiac monitoring; Complete Time: 10:47 rn 01/15 10:32 Order name: EKG - Nurse/Tech; Complete Time: 10: rn 01/15 10:32 Order name: IV Saline Lock; Complete Time: 11:01/15 10:32 Order name: Labs collected and sent; Complete Time: 11:01/15 10:32 Order name: O2 Per Protocol; Complete Time: 11:01/15 10:32 Order name: O2 Sat Monitoring; Complete Time: :01/15 10:33 Order name: Urine Dipstick-Ancillary (obtain specimen); Complete Time: 11:37 rn 01/15 10:33 Order name: Urine Test (obtain specimen); Complete Time: 11:37 rn Administered Medications: 11:12 Drug: NS 0.9% 1000 ml Route: IV; Rate: 1000 ml; Site: left forearm; tr6 12:07 Follow up: IV Status: Completed infusion; IV Intake: 1000ml tr6 12:07 Drug: Valium (diazepam) 2 mg Route: PO; tr6 12:07 Drug: Potassium Chloride 40 mEq Route: PO; tr6 Disposition Summary: 01/15/21 13:54 Discharge Ordered Location: Home rn Problem: new rn Symptoms: have improved rn Condition: Stable rn Diagnosis - Dyspnea, unspecified rn Followup: rn - With: Private Physician - When: As needed - Reason: Recheck today's complaints, Re-evaluation by your physician Discharge Instructions: - Discharge Summary Sheet rn - Shortness of Breath, Adult rn - Managing Anxiety, Adult rn Forms: - Medication Reconciliation Form rn - Thank You Letter rn - Antibiotic pattern chart writer - Prescription Opioid Use rn Signatures: Dispatcher [employer] EDIN Scotty Vines MD MD rn Lewis, Lynsay, RN RN ll1 Jerrica Varner RN RN tr6 Corrections: (The following items were deleted from the chart) 11:31 10:33 CORONAVIRUS+MRGaroLABGaroBRZ ordered. EDIN EDMS 13:54 13:54 Anxiety disorder, unspecified rn rn
[2021-01-15 14:22] VITALS: TEMP 97.8; O2SAT 100
[2021-01-15 14:24] VITALS: BP 103/68
== END 2021-01-15 14:16 | disposition home or self-care (01) ==
LOC: ER 10:20
DX: R06.00 Dyspnea, unspecified (principal); Z20.822 Contact with and (suspected) exposure to COVID-19
CPT/HCPCS: 36415; 71045; 80048; 81003; 84439; 84443; 84484; 85025; 85379; 93005; 96360; 99284; J7030; U0003

== ENCOUNTER 2021-05-21 02:30 | Emergency (ER) | payer SELFPAY ==
[2021-05-21 04:07] LABS: Urine Blood Trace-lysed (Negative); Urine Glucose Negative (Negative); Urine Protein Negative (Negative); Urine Specific Gravity <=1.005 (1.005-1.030); Urine pH 5.5 (5.0-7.0)
[2021-05-21 04:23] LABS: Barbiturates NEGATIVE (NEGATIVE); Benzodiazepines NEGATIVE (NEGATIVE); Cocaine NEGATIVE (NEGATIVE); METHAMPHETAM NEGATIVE (NEGATIVE); Methadone NEGATIVE (NEGATIVE); Opiates NEGATIVE (NEGATIVE); Phencyclidine NEGATIVE (NEGATIVE); THC Cannibis NEGATIVE (NEGATIVE)
[2021-05-21 04:44] LABS: Absolute Lymphocytes (CBC) 1.4 K/uL (0.7-4.9); Basophils % 0.6 % (0-1.3); Lymphocytes % 17.9 % (15.3-44.8); MPV 8.1 fL (7.6-11.3); RBC Red Blood Cell Count 4.22 M/uL (3.86-4.86)
[2021-05-21 05:09] LABS: ALT/SGPT 23 U/L (12-78); AST/SGOT 14 U/L (15-37); Albumin 4.1 g/dL (3.4-5.0); Alkaline Phosphatase 49 U/L (45-117); BUN Blood Urea Nitrogen 10 mg/dL (7-18); Bicarbonate 20 mmol/L (21-32); Bilirubin Direct 0.2 mg/dL (0-0.2); Bilirubin Total 0.8 mg/dL (0.2-1.0); Glucose Level 98 mg/dL (74-106); Magnesium 2.2 mg/dL (1.8-2.4); NT PRO-BNP 40 pg/mL (<125); Potassium 3.4 mmol/L (3.5-5.1); Protein, Total 8.3 g/dL (6.4-8.2); Sodium Level 141 mmol/L (136-145); Troponin (Emerg Dept Use Only) < 0.02 ng/mL (0.0-0.045)
[2021-05-21 05:13] LABS: Protime INR 1.1
[2021-05-21 05:36] LABS: SARS-COV-2 RT PCR NEGATIVE (NEGATIVE)
[2021-05-21] MEDS ORDERED: NA CHLORIDE 0.9% 1,000 ML ONE (06:08)
[2021-05-21] MEDS ORDERED: POTASSIUM CL SA 10 MEQ TAB PO ONE (06:29)
--- NOTE | 2021-05-21 06:30 | ER ---
Nurse's Notes [facility] Name: Cynthia Ellington Age: 26 yrs Sex: Female : 1995 Arrival Date: 05/21/2021 Time: 02:33 Bed 15 Private MD: Diagnosis: Dyspnea Presentation: 05/21 02:49 Chief complaint: Patient states: she feels like she is having difficulty breathing bb since denies fever, has not affected her daily activities she is not sure if it is anxiety and she thought it would go away but it hasn't. She also states she has not had her period this week. Coronavirus screen: difficulty breathing. Ebola Screen: No symptoms or risks identified at this time. Initial Sepsis Screen: Does the patient meet any 2 criteria? No. Patient's initial sepsis screen is negative. Does the patient have a suspected source of infection? No. Patient's initial sepsis screen is negative. Risk Assessment: Do you want to hurt yourself or someone else? Patient reports no desire to harm self or others. Onset of symptoms was May 18, 2021. 02:49 Method Of Arrival: Ambulatory bb 02:49 Acuity: THOMPSON 3 bb Triage Assessment: 07:26 General: Appears. as6 ILLUSIONIST: 02:53 LMP 04/17/2021 bb Historical: - Allergies: 02:53 No Known Allergies; bb - Home Meds: 02:53 None [Active]; bb - PMHx: 02:53 None; bb - PSHx: 02:53 Cholecystectomy; bb - Immunization history:: Adult Immunizations up to date, Client reports having NOT received the Covid vaccine. - Social history:: Smoking status: Patient denies any tobacco usage or history of. Screenin:26 Abuse screen: Denies threats or abuse. Nutritional screening: No deficits noted. as6 Tuberculosis screening: No symptoms or risk factors identified. Fall Risk None identified. Assessment: 07:22 Reassessment: at discharge pt was calm and stable, breathing was even and non labored, as6 no apparent distress noted at time of discharge. Vital Signs: 02:49 BP 125 / 84; Pulse 99; Resp 16 S; Temp 97.9(O); Pulse Ox 99% on R/A; Weight 63.5 kg bb (R); Height 5 ft. 6 in. (167.64 cm) (R); Pain 0/10; 07:21 BP 117 / 74; Pulse 74; Resp 20 S; Pulse Ox 100% on R/A; as6 02:49 Body Mass Index 22.60 (63.50 kg, 167.64 cm) bb ED Course: 02:33 Patient arrived in ED. 02:53 Triage completed. bb 02:53 Arm band placed on Patient placed in an exam room, on a stretcher, on pulse oximetry. bb Family accompanied patient. 03:03 Norberto Esquivel, RN is Primary Nurse. mr2 03:05 Hi Rice MD is Attending Physician. [facility] 03:32 XRAY Chest (1 view) In Process Unspecified. EDMS 07:27 No provider procedures requiring assistance completed. IV discontinued, intact, as6 bleeding controlled, No redness/swelling at site. Pressure dressing applied. Administered Medications: 06:26 Drug: NS 0.9% 1000 ml Route: IV; Rate: 1000 ml; Site: right antecubital; bb 06:27 Drug: Potassium Chloride 20 mEq Route: PO; bb Outcome: 06:29 Discharge ordered by . 7 07:26 Discharged to home ambulatory. as6 07:26 Condition: stable 07:26 Discharge instructions given to patient, Instructed on discharge instructions, follow up and referral plans. Demonstrated understanding of instructions, follow-up care. 07:27 Patient left the ED. as6 Signatures: Dispatcher [employer] Raven Grigsby RN RN Hi Rice MD MD [facility] Tanisha Ambriz Norberto Esquivel RN RN mr2 Jon Machado RN RN as6
--- NOTE | 2021-05-21 06:30 | EDPHYS ---
Physician Documentation [facility] Name: Cynthia Ellington Age: 26 yrs Sex: Female : 1995 Arrival Date: 05/21/2021 Time: 02:33 Bed 15 Private MD: ED Physician Hi Rice HPI: 05/21 03:17 This 26 yrs old Female presents to ER via Ambulatory with complaints of Chest mh7 Tightness, Breathing Difficulty. 03:18 The patient has shortness of breath with light activity. Onset: The symptoms/episode mh7 began/occurred 3 day(s) ago. Duration: The symptoms are intermittent, with no pattern. The patient's shortness of breath is aggravated by exertion, light activity, is alleviated by nothing. Associated signs and symptoms: Pertinent positives: chest pain, Pertinent negatives: non-productive cough, productive cough, diaphoresis, dizziness, fever, hemoptysis, loss of consciousness, nausea, numbness in extremities, visual changes, vomiting. Severity of symptoms: At their worst the symptoms were mild yesterday, in the emergency department the symptoms are unchanged. 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 - Social history:: Smoking status: Patient denies any tobacco usage or history of. ROS: 03:18 Constitutional: Negative for fever, chills, and weight loss, Eyes: Negative for injury, mh7 pain, redness, and discharge, ENT: Negative for injury, pain, and discharge, Neck: Negative for injury, pain, and swelling, Abdomen/GI: Negative for abdominal pain, nausea, vomiting, diarrhea, and constipation, Back: Negative for injury and pain, : Negative for injury, bleeding, discharge, and swelling, MS/Extremity: Negative for injury and deformity, Skin: Negative for injury, rash, and discoloration, Neuro: Negative for headache, weakness, numbness, tingling, and seizure, Psych: Negative for depression, anxiety, suicide ideation, homicidal ideation, and hallucinations, Allergy/Immunology: Negative for hives, rash, and allergies, Endocrine: Negative for neck swelling, polydipsia, polyuria, polyphagia, and marked weight changes, Hematologic/Lymphatic: Negative for swollen nodes, abnormal bleeding, and unusual bruising. Exam: 03:18 Constitutional: This is a well developed, well nourished patient who is awake, alert, mh7 and in no acute distress. Head/Face: Normocephalic, atraumatic. Eyes: Pupils equal round and reactive to light, extra-ocular motions intact. Lids and lashes normal. Conjunctiva and sclera are non-icteric and not injected. Cornea within normal limits. Periorbital areas with no swelling, redness, or edema. ENT: Nares patent. No nasal discharge, no septal abnormalities noted. Tympanic membranes are normal and external auditory canals are clear. Oropharynx with no redness, swelling, or masses, exudates, or evidence of obstruction, uvula midline. Mucous membranes moist. Neck: Trachea midline, no thyromegaly or masses palpated, and no cervical lymphadenopathy. Supple, full range of motion without nuchal rigidity, or vertebral point tenderness. No Meningismus. Chest/axilla: Normal chest wall appearance and motion. Nontender with no deformity. No lesions are appreciated. Cardiovascular: Regular rate and rhythm with a normal S1 and S2. No gallops, murmurs, or rubs. Normal PMI, no JVD. No pulse deficits. Respiratory: Lungs have equal breath sounds bilaterally, clear to auscultation and percussion. No rales, rhonchi or wheezes noted. No increased work of breathing, no retractions or nasal flaring. Abdomen/GI: Soft, non-tender, with normal bowel sounds. No distension or tympany. No guarding or rebound. No evidence of tenderness throughout. Back: No spinal tenderness. No costovertebral tenderness. Full range of motion. Skin: Warm, dry with normal turgor. Normal color with no rashes, no lesions, and no evidence of cellulitis. MS/ Extremity: Pulses equal, no cyanosis. Neurovascular intact. Full, normal range of motion. Neuro: Awake and alert, GCS 15, oriented to person, place, time, and situation. Cranial nerves II-XII grossly intact. Motor strength 5/5 in all extremities. Sensory grossly intact. Cerebellar exam normal. Normal gait. Psych: Awake, alert, with orientation to person, place and time. Behavior, mood, and affect are within normal limits. Vital Signs: 02:49 BP 125 / 84; Pulse 99; Resp 16 S; Temp 97.9(O); Pulse Ox 99% on R/A; Weight 63.5 kg bb (R); Height 5 ft. 6 in. (167.64 cm) (R); Pain 0/10; 07:21 BP 117 / 74; Pulse 74; Resp 20 S; Pulse Ox 100% on R/A; as6 02:49 Body Mass Index 22.60 (63.50 kg, 167.64 cm) bb MDM: 06:27 Differential diagnosis: Anemia Anxiety Reaction asthma, Bronchitis pneumonia, mh7 Pneumothorax Psychogenic pulmonary edema, Pulmonary Embolism reactive airway disease. Data reviewed: vital signs, nurses notes, old medical records, lab test result(s), cardiac enzymes, CBC, electrolytes, EKG, radiologic studies, plain films. Data interpreted: Pulse oximetry: on room air is 99 %. Interpretation: normal. Counseling: I had a detailed discussion with the patient and/or guardian regarding: the historical points, exam findings, and any diagnostic results supporting the discharge/admit diagnosis, lab results, radiology results, the need for outpatient follow up. Response to treatment: the patient's symptoms have resolved after treatment, the patient's blood pressure is in an acceptable range, mental status has returned to baseline, the patient no longer shows bradycardia, the patient is not short of breath, the patient is not tachycardic, the patient's pain is gone, the patient's temperature has normalized. 06:29 Patient medically screened. [facility] 05/21 03:15 Order name: Basic Metabolic Panel [facility] 05/21 03:15 Order name: CBC with Diff; Complete Time: 04:47 [facility] 05/21 03:15 Order name: LFT's; Complete Time: 05:47 [facility] 05/21 03:15 Order name: Magnesium; Complete Time: 05:47 [facility] 05/21 03:15 Order name: NT PRO-BNP; Complete Time: 05:47 [facility] 05/21 03:15 Order name: PT-INR; Complete Time: 05:47 [facility] 05/21 03:15 Order name: Troponin (emerg Dept Use Only); Complete Time: 05:47 [facility] 05/21 03:15 Order name: XRAY Chest (1 view) [facility] 05/21 03:15 Order name: UDS; Complete Time: 04:42 [facility] 05/21 03:15 Order name: D-Dimer; Complete Time: 05:47 [facility] 05/21 03:16 Order name: Basic Metabolic Panel; Complete Time: 05:47 [facility] 05/21 03:16 Order name: COVID-19/FLU A+B (Document "Date of Onset" if Symptomatic); Complete Time: [facility] 05:47 05/21 04:06 Order name: Urine Dipstick-Ancillary; Complete Time: 04:42 [facility] 05/21 04:12 Order name: Test, Serum; Complete Time: 05:47 [facility] 05/21 03:15 Order name: EKG; Complete Time: 03:16 [facility] 05/21 03:15 Order name: Cardiac monitoring [facility] 05/21 03:15 Order name: EKG - Nurse/Tech; Complete Time: 03:57 [facility] 05/21 03:15 Order name: IV Saline Lock [facility] 05/21 03:15 Order name: Labs collected and sent [facility] 05/21 03:15 Order name: O2 Per Protocol [facility] 05/21 03:15 Order name: O2 Sat Monitoring [facility] 05/21 03:15 Order name: Urine Dipstick-Ancillary (obtain specimen) [facility] 05/21 03:15 Order name: Urine Test (obtain specimen) [facility] Administered Medications: 06:26 Drug: NS 0.9% 1000 ml Route: IV; Rate: 1000 ml; Site: right antecubital; bb 06:27 Drug: Potassium Chloride 20 mEq Route: PO; bb Disposition Summary: 05/21/21 06:29 Discharge Ordered Location: Home [facility] Problem: new [facility] Symptoms: have improved [facility] Condition: Stable [facility] Diagnosis - Dyspnea [facility] Followup: [facility] - With: Private Physician - When: 1 - 2 days - Reason: Worsening of condition, Recheck today's complaints, Continuance of care, Re-evaluation by your physician Discharge Instructions: - Discharge Summary Sheet jd3 Forms: - Medication Reconciliation Form [facility] - Thank You Letter [facility] - Antibiotic Education [facility] - Prescription Opioid Use [facility] Signatures: Dispatcher [employer] EDMS Raven Chahal IMELDA RN bb Hi Rice, MD CORLEY mh7
[2021-05-21 07:33] VITALS: TEMP 97.9
[2021-05-21 07:34] VITALS: BP 117/74; O2SAT 100
--- NOTE | 2021-05-21 08:24 | RAD REPORT ---
EXAM DESCRIPTION: RAD - Chest Single View - 05/21/2021 3:33 am CLINICAL HISTORY: SOB COMPARISON: January 15 TECHNIQUE: AP portable chest image was obtained 05/21/2021 3:33 am . FINDINGS: Lungs are clear. Heart and vasculature are normal. No measurable pleural effusion and no p neumothorax. No acute bony abnormality seen. No acute aortic findings suspected. IMPRESSION: No acute cardiopulmonary process. No significant change from comparison study.
--- NOTE | 2021-05-24 08:13 | EKG ---
Test Date: 2021-05-21 Test Time: 03:56:56 Conveyor Operator: MAX MEASUREMENT RESULTS: Intervals: Rate: 98 NC: 140 QRSD: 72 QT: 350 QTc: 446 [place]: P: 64 NC: 140 QRS: 89 T: 40 INTERPRETIVE STATEMENTS: Normal sinus rhythm Normal ECG Compared to ECG 01/15/2021 10:41:59 Sinus tachycardia no longer present T-wave abnormality no longer present Electronically Signed On 05-24-21 08:04:23 CHIEF OPERATOR REFORMER by Darrell Rowley
== END 2021-05-21 07:27 | disposition home or self-care (01) ==
LOC: ER 02:30
DX: R06.00 Dyspnea, unspecified (principal)
CPT/HCPCS: 0240U; 36415; 71045; 80048; 80076; 80307; 81003; 83735; 83880; 84484; 84703; 85025; 85379; 85610; 93005; 99283; J7030

== ENCOUNTER 2023-10-16 16:00 | Emergency (ER) | payer OTHER ==
[2023-10-16] MEDS ORDERED: LIDOCAINE 4% PATCH ONE (16:16)
--- NOTE | 2023-10-16 17:01 | RAD REPORT ---
EXAM DESCRIPTION: RAD - C Spine Ap/Lat - 10/16/2023 4:51 pm CLINICAL HISTORY: PAIN COMPARISON: No comparisons FINDINGS: Cervical bodies are normal in height and alignment.No fracture or acute bony process seen. No disc space narrowing. No prevertebral soft tissue thickening or other suspicious soft tissue finding. IMPRESSION: Negative cervical spine examination.
--- NOTE | 2023-10-16 17:04 | EDPHYS ---
Physician Documentation [facility] Name: Cynthia Ellington Age: 28 yrs Sex: Female : 1995 Arrival Date: 10/16/2023 Time: 16:00 Bed 12 Private MD: ED Physician Bhupinder Rodrigues HPI: 10/15 16:16 This 28 yrs old Female presents to ER via Ambulatory with complaints of Neck ec2 Pain, <24hrs Old. 16:16 Patient arrives today for evaluation of right neck pain. Patient reports that she slept ec2 on her pillow wrong simply woke up with pain in the right neck. Taking Tylenol as well as IcyHot with minimal alleviation in symptoms. No falls injuries or trauma. No red flag symptoms. Patient is 19 weeks otherwise no concerns.. Historical: - Allergies: 16:12 No Known Allergies; ko1 - Home Meds: 16:12 None [Active]; ko1 - PMHx: 16:12 None; ko1 - PSHx: 16:12 Cholecystectomy; ko1 - Immunization history:: Adult Immunizations up to date. - Infectious Disease History:: Denies. - Social history:: Smoking status: Patient denies any tobacco usage or history of. ROS: 16:16 Constitutional: as per hpi ec2 Exam: 16:16 Constitutional: GEN: NAD Head: atraumatic Eyes: EOMI Ears: External ears are ec2 normal. CV: regular rate LUNGS: no respiratory distress ABD: non-distended SKIN: no evidence of rashes MSK: no evidence of trauma, no C/T/L-spine TTP. Right paraspinal TTP. NEURO: moves all extremities equally Vital Signs: 16:08 BP 113 / 80; Pulse 88; Resp 16; Temp 98; Pulse Ox 100% ; ko1 MDM: 16:15 Patient medically screened. ec2 16:16 Data reviewed: vital signs. ED course: Patient arrives today for right neck pain. Will ec2 obtain x-ray of the C-spine. Suspect muscular strain, doubt fracture. Will give the patient a Lidoderm patch for the pain as well.. 16:48 ED course: Reassuring heart tones.. ec2 17:03 ED course: C-spine x-ray independently reviewed and interpreted by me, shows no bony ec2 fracture. Will discharge home. Return precautions given.. 10/15 16:14 Order name: C Spine Ap/Lat XRAY; Complete Time: 17:03 ec2 10/15 16:15 Order name: Heart Tones; Complete Time: 16:24 ec2 Administered Medications: 16:24 Drug: Lidoderm Topical Patch 5 % (700 mg/patch) 1 patches Topical once; leave on for 12 as6 hours; cover most painful area; may cut into smaller pieces Route: Topical; Site: affected area; 17:14 Follow up: Response: No adverse reaction as6 Disposition Summary: 10/16/23 17:03 Discharge Ordered Notes: Location: Home ec2 Condition: Stable ec2 Diagnosis - Strain of muscle, fascia and tendon at neck level ec2 Followup: ec2 - With: Private Physician - When: - Reason: Re-evaluation by your physician Discharge Instructions: - Discharge Summary Sheet ec2 - Neck Contusion, [id number] ec2 Forms: - Medication Reconciliation Form ec2 - Thank You Letter ec2 - Antibiotic Education ec2 - Prescription Opioid Use ec2 - Patient Portal Instructions ec2 - Leadership Thank You Letter ec2 Signatures: Dispatcher [employer] EDJon Boucher RN RN as6 Becki Dangelo RN RN ko1 Bhupinder Rodrigues MD MD ec2 Corrections: (The following items were deleted from the chart) 16:14 16:14 C Spine Ap/Lat+[email or web address] ordered. EDMS EDMS
--- NOTE | 2023-10-16 17:04 | ER ---
Nurse's Notes [facility] Name: Cynthia Ellington Age: 28 yrs Sex: Female : 1995 Arrival Date: 10/16/2023 Time: 16:00 Bed 12 Private MD: Diagnosis: Strain of muscle, fascia and tendon at neck level Presentation: 10/15 16:08 Chief complaint: Patient states: was laying on her side and moved and now her neck ko1 hurts. 19 weeks preg, 1st kid. Coronavirus screen: At this time, the client does not indicate any symptoms associated with coronavirus-19. Ebola Screen: No symptoms or risks identified at this time. Initial Sepsis Screen: Does the patient meet any 2 criteria? No. Patient's initial sepsis screen is negative. Does the patient have a suspected source of infection? No. Patient's initial sepsis screen is negative. Risk Assessment: Do you want to hurt yourself or someone else? Patient reports no desire to harm self or others. Onset of symptoms was October 16, 2023. 16:08 Method Of Arrival: Ambulatory ko1 16:08 Acuity: THOMPSON 4 ko1 Triage Assessment: 16:12 General: Appears in no apparent distress. uncomfortable, Behavior is calm, cooperative, ko1 appropriate for age. Pain: Complains of pain in back of neck. Historical: - Allergies: 16:12 No Known Allergies; ko1 - Home Meds: 16:12 None [Active]; ko1 - PMHx: 16:12 None; ko1 - PSHx: 16:12 Cholecystectomy; ko1 - Immunization history:: Adult Immunizations up to date. - Infectious Disease History:: Denies. - Social history:: Smoking status: Patient denies any tobacco usage or history of. Screenin:29 [facility] ED Fall Risk Assessment (Adult) History of falling in the last 3 months, as6 including since admission No falls in past 3 months (0 pts) Confusion or Disorientation No (0 pts) Intoxicated or Sedated No (0 pts) Impaired Gait No (0 pts) Mobility Assist Device Used No (0 pt) Altered Elimination No (0 pt) Score/Fall Risk Level 0 - 2 = Low Risk Oriented to surroundings, Maintained a safe environment, Educated pt \T\ family on fall prevention, incl call for assistance when getting out of bed, Assessed \T\ reinforced patient's understanding of fall precautions. Abuse screen: Denies threats or abuse. Denies injuries from another. Nutritional screening: No deficits noted. Tuberculosis screening: No symptoms or risk factors identified. Assessment: 16:30 Pain: Complains of pain in back of neck. Musculoskeletal: Range of motion: limited in as6 neck. 17:14 Reassessment: Patient appears in no apparent distress at this time. Patient and/or as6 family updated on plan of care and expected duration. Pain level reassessed. Patient is alert, oriented x 3, equal unlabored respirations, skin warm/dry/pink. Patient states feeling better. Patient states symptoms have improved. Vital Signs: 16:08 BP 113 / 80; Pulse 88; Resp 16; Temp 98; Pulse Ox 100% ; ko1 Vitals: 16:29 Heart Tones 142. as6 ED Course: 16:07 Patient arrived in ED. mg5 16:07 Bhupinder Rodrigues MD is Attending Physician. ec2 16:12 Triage completed. ko1 16:12 Arm band placed on right wrist. Patient placed in an exam room, on a stretcher, on ko1 pulse oximetry, Patient notified of wait time. 16:14 Jon Machado, IMELDA is Primary Nurse. as6 16:30 Bed in low position. Call light in reach. as6 16:53 C Spine Ap/Lat XRAY In Process Unspecified. EDMS 17:14 Provided Education on: follow up, OTC medications . as6 17:14 No provider procedures requiring assistance completed. Patient did not have IV access as6 during this emergency room visit. Administered Medications: 16:24 Drug: Lidoderm Topical Patch 5 % (700 mg/patch) 1 patches Topical once; leave on for 12 as6 hours; cover most painful area; may cut into smaller pieces Route: Topical; Site: affected area; 17:14 Follow up: Response: No adverse reaction as6 Medication: 16:29 VIS not applicable for this client. as6 Outcome: 17:03 Discharge ordered by . ec2 17:14 Discharged to home ambulatory, as6 17:14 Condition: stable 17:14 Discharge instructions given to patient, Instructed on discharge instructions, follow up and referral plans. Demonstrated understanding of instructions, follow-up care, 17:15 Patient left the ED. as6 Signatures: Dispatcher [employer] EDMS Slawson, Jon, RN RN as6 Becki Dangelo RN RN ko1 Gaby Rose mg5 Bhupinder Rodrigues MD MD ec2
[2023-10-16 23:33] VITALS: BP 113/80; TEMP 98; O2SAT 100
== END 2023-10-16 17:15 | disposition home or self-care (01) ==
LOC: ER 16:00
DX: S16.1XXA Strain of muscle, fascia and tendon at neck level, initial encounter (principal)
CPT/HCPCS: 72040; J2001

== ENCOUNTER 2024-09-22 18:13 | Emergency (ER) | payer OTHER ==
--- OUTSIDE RECORDS SUMMARY | 2024-09-22 18:19 | XMS REPORT | Continuity of Care Document ---
Author Name Unknown Address [address] [place] [address] [facility] Address [address] [place] [address] Care Team Providers Care Game Technician Name Role Phone MARCIN BOWEN Primary Care Physician DARIELA Hannon Attending Clinician DARIELA Hannon Attending Clinician MARCIN Du Attending Clinician MARCIN Mcclelland Attending Clinician Dariela Alfonso MD Attending Clinician [phone] Doctor Unassigned, [place] Attending Clinician Kit veliz 2, [facility] Attending Clinician Unavailable Marcin Bowen MD Attending Clinician [phone] ALLIE ROSARIO Attending Clinician Allie Levy Attending Clinician [phone] Unknown, Attending Attending Clinician MARIO Napier Attending Clinician Unavailable Mario Granda DNP Attending Clinician [phone] Darian Morales MD Attending Clinician [phone] SARAH LAWS Attending Clinician Unavailable SARAH LAWS Attending Clinician Unavailable Ultrasound, Conrad-Mfm Attending Clinician UnavailSarah Tavares MD Attending Clinician [phone] WESLEY BOBO Attending Clinician Unavailable WESLEY BOBO Attending Clinician Unavailable Gianluca Boucher MD, Vanessa Attending Clinician [phone] Doctor Unassigned, [place] Attending Clinician U navailable Lab, Ang - Db Attending Clinician Unavailable AMALIA HARDING Attending Clinician Unav ailable Lane Ornelas MD, Pham Attending Clinician + STEVEN CLEVELAND Attending Clinician Unavaila ble Draw, Clc-Bls Lab Attending Clinician Unavailabl e Pathology Attending Clinician Unavailable PATHOLOGY Attending Clinician Unavailable DARIELA MCCULLOUGH Admitting Clinician Dawit Mccullough MD, Dariela Admitting Clinician [phone]- [phone] WESLEY BOBO Admitting Clinician Unavailable Payers Payer Name Policy Type Policy Number Effective Date Expirati on Date Source [facility] [id number] 2023 00:00:00 Problems Condition Name Condition Details Condition Category Status Onset Date Resolution Date Last Treatment Date Treating Clinician Comments Source Encounter for induction of labor Encounter for induction of labor Disease Active - 00:00: 00 [facility] 40 weeks gestation of 40 weeks gestation of Disease Active - 00:00: 00 [facility] Liveborn infant, of black , born in hospital by vaginal delivery Liveborn , of black , born in hospital by vaginal delivery Disease Active -06 00:00: 00 [facility] Anemia of mother in , antepartum Anemia of mother in , antepartum Disease Active 6-20 00:00: 00 [facility] Rubella non-immune status, antepartum Rubella non-immune status, antepartum Disease Active 3-21 00:00: 00 [facility] Cystic fibrosis carrier, 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, antepartum Disease Active 3-21 00:00: 00 [facility] Normal , antepartum Normal , antepartum Disease Active 2-22 00:00: 00 [facility] Acute cholecysti tis Acute cholecysti tis Disease Resolve d 2015-07 00:00: 00 2023-11-12 00:00:00 2023-11-12 16:17:25 [facility] Allergies, Adverse Reactions, Alerts Allergy Name Allergy Type Status Severity Reaction(s) Onset Date Inactive Date Treating Clinician Comments Source NO KNOWN ALLERGIE S Drug Class Active [facility] Social History Social Habit Start Date Stop Date Quantity Comments Source ASSERTION 2023-06-14 00:00:00 [facility] Alcoholic beverage intake 2024-07-29 00:00:00 2024-07-29 00:00:00 Lifetime non-drinker (finding) [facility] History of Social function 2024-04-10 00:00:00 2024-04-10 00:00:00 [facility] Alcohol intake 2023-10-15 00:00:00 2023-10-15 00:00:00 Ex-drinker (finding) [facility] Sex assigned at 1995 00:00:00 1995 00:00:00 [facility] Smoking Status Start Date Stop Date Source Never smoked tobacco [facility] Medications Ordered Medication Name Filled Medication Name Start Date Stop Date Current Medication? Ordering Clinician Indication Dosage Frequency Signature (SIG) Comments Components Source norelgestro min-ethinyl estradiol (XULANE) 150-35 mcg/24 hr patch 2-24 00:00: 00 Yes 1{patch } Apply 1 Patch to skin weekly. [facility] albuterol 90 mcg/actuati on inhaler 1- 00:00: 00 07-29 00:00 :00 No [id number] 2{puff} Inhale 2 Puffs every 6 (six) hours as needed for Wheezing for up to 30 days. [facility] bromphenira mine-pseudo ephedrine-D M (BROMFED DM) 2-30-10 mg/5 mL syrup 1-05 00:00: 00 07-11 05:59 :00 Yes [id number] 5mL Take 5 mL by mouth 4 (four) times daily as needed for Cold symptoms for up to 5 days. [facility] norethindro frannie.estrad ioL-iron (LOESTRIN FE /) 1 mg-20 mcg (21)/75 mg (7) tablet 2023-07 00:00: 00 08-24 00:00 :00 No [id number] 1{tbl} Take 1 tablet by mouth in the morning. [facility] vitamin w/FA tablet 03-07 00:00: 00 07-29 00:00 :00 No [id number] 102 1{tbl} Take 1 tablet by mouth in the morning. [facility] docusate 100 mg capsule 03-07 00:00: 00 07-29 00:00 :00 No [id number] 102 200mg Take 2 capsules by mouth once daily as needed for Constipati on. [facility] ferrous sulfate 325 mg (65 mg iron) tablet 03-07 00:00: 00 07-29 00:00 :00 No [id number] 102 325mg Take 1 tablet by mouth in the morning. [facility] ibuprofen 800 mg tablet 03-07 00:00: 00 07-29 00:00 :00 No [id number] 102 800mg Take 1 tablet by mouth every 8 (eight) hours as needed (pain). Take with food or milk. [facility] witch Philip (TUCKS) 50 % topical pad 03-06 19:30: 00 03-06 18:52 :00 No Topical, ONCE, 1 dose, On Sat03/06/24 at 1430, Routine [facility] rho(D) immune globulin (RHOPHYLAC) injection 300 mcg 03-06 18:27: 20 Yes 300ug [facility] HYDROcodone -acetaminop hen (NORCO 5) tablet 1 tablet 03-06 18:26: 41 Yes 1{tbl} 1 tablet, Oral, Q6HPRN, Starting on Sat03/06/24 at 1326, Until Discontinu ed, Routine, Pain (scale 7-10) [facility] ibuprofen (IBU) tablet 600 mg 03-06 18:26: 41 Yes 600mg 600 mg, Oral, Q6HPRN, Starting on Sat03/06/24 at 1326, Until Discontinu ed, Routine, Pain (scale 4-6) [facility] acetaminoph en (TYLENOL) tablet 650 mg 03-06 18:26: 41 Yes 650mg 650 mg, Oral, Q6HPRN, Starting on Sat03/06/24 at 1326, Until Discontinu ed, Routine, Pain (scale 1-3) [facility] (BENADRYL) tablet 25 mg 03-06 18:26: 41 Yes 25mg [facility] ondansetron (ZOFRAN (PF)) injection 4 mg 03-06 18:26: 41 Yes 4mg [facility] simethicone (GAS RELIEF (SIMETHICON E)) chewable tablet 160 mg 03-06 18:26: 41 Yes 160mg [facility] docusate (COLACE) capsule 200 mg 03-06 18:26: 41 Yes 200mg [facility] magnesium hydroxide (MILK OF MAGNESIA) 400 mg/5 mL suspension 30 mL 03-06 18:26: 41 Yes 30mL [facility] benzocaine- menthol (DERMOPLAST ) 20-0.5 % topical spray 03-06 18:26: 41 Yes Topical, PRN, Starting on Sat03/06/24 at 1326, Until Discontinu ed, Routine, Perineum discomfort [facility] fentaNYL-ro pivacaine 2 mcg/mL-0.1 % (PF) in NS 200 mL epidural infusion RTU 03-06 14:17: 00 03-07 01:02 :00 No Intra-op [facility] miSOPROStol (CYTOTEC) quarter-tab let 25 mcg 03-06 06:00: 00 03-06 18:27 :19 No 25ug 25 mcg, Vaginal, Q4H ABX, First dose (after last modificati on) on Sat03/06/24 at 0100, Until Discontinu ed, Routine [facility] FENTanyl (PF) (SUBLIMAZE) injection 100 mcg 03-06 05:18: 47 03-06 18:27 :19 No 100ug 100 mcg, Slow IV Push, Q2HPRN, Starting on Sat03/06/24 at 0018, Until Sat03/06/24 at 1327, Routine, Pain (scale 7-10) [facility] lactated ringers IV infusion 500 mL 03-06 05:18: 47 03-06 18:27 :19 No 500mL at 999 mL/hr, 500 mL, IV Infusion, PRN - SEE INSTRUCTIO NS, Starting on Sat03/06/24 at 0018, Until Sat03/06/24 at 1327, Routine [facility] D5W-LR IV infusion 1,000 mL 03-06 05:18: 47 03-06 18:27 :19 No 1000mL at 1-125 mL/hr, IV Infusion, TITRATE, Starting on Sat03/06/24 at 0018, Until Sat03/06/24 at 1327, Routine [facility] vit no.124/iron /folic ( VITAMIN ORAL) 5-14 16:01: 21 03-07 00:00 :00 No Take by mouth. [facility] vit no.124/iron /folic ( VITAMIN ORAL) 4-16 16:06: 58 Yes Take by mouth. [facility] vit no.124/iron /folic ( VITAMIN ORAL) 2-22 14:07: 14 Yes Take by mouth. [facility] Immunizations Ordered Immunization Name Filled Immunization Name Date Status Comments Source Flu Injectable MDCK Pres-Free (FLUCELVAX) 2024-02-25 00:00:00 Completed [facility] Flu Injectable MDCK Pres-Free (FLUCELVAX) 2024-02-25 00:00:00 Completed [facility] TDAP 2023-12-19 00:00:00 Completed [facility] TDAP 2023-12-19 00:00:00 Completed [facility] Influenza Virus Vaccine Quad IM, Preserv and ABX Free 6 MO-64 YRS (FLUCELVAX) 2023-08-22 00:00:00 Completed [facility] Influenza Virus Vaccine Quad IM, Preserv and ABX Free 6 MO-64 YRS (FLUCELVAX) 2023-08-22 00:00:00 Completed [facility] Influenza Virus Vaccine Quad IM, Preserv and ABX Free 6 MO-64 YRS (FLUCELVAX) Unknown Completed [facility] Influenza Virus Vaccine Quad IM, Preserv and ABX Free 6 MO-64 YRS (FLUCELVAX) Unknown Completed [facility] Influenza Virus Vaccine Quad IM, Preserv and ABX Free 6 MO-64 YRS (FLUCELVAX) Unknown Completed [facility] Influenza Virus Vaccine Quad IM, Preserv and ABX Free 6 MO-64 YRS (FLUCELVAX) Unknown Completed [facility] Influenza Virus Vaccine Quad IM, Preserv and ABX Free 6 MO-64 YRS (FLUCELVAX) Unknown Completed [facility] Influenza Virus Vaccine Quad IM, Preserv and ABX Free 6 MO-64 YRS (FLUCELVAX) Unknown Completed [facility] TDAP Unknown Completed [facility] Influenza Virus Vaccine Quad IM, Preserv and ABX Free 6 MO-64 YRS (FLUCELVAX) Unknown Completed [facility] Influenza Virus Vaccine Quad IM, Preserv and ABX Free 6 MO-64 YRS (FLUCELVAX) Unknown Completed [facility] TDAP Unknown Completed [facility] Influenza Virus Vaccine Quad IM, Preserv and ABX Free 6 MO-64 YRS (FLUCELVAX) Unknown Completed [facility] TDAP Unknown Completed [facility] Influenza Virus Vaccine Quad IM, Preserv and ABX Free 6 MO-64 YRS (FLUCELVAX) Unknown Completed [facility] TDAP Unknown Completed [facility] Influenza Virus Vaccine Quad IM, Preserv and ABX Free 6 MO-64 YRS (FLUCELVAX) Unknown Completed [facility] TDAP Unknown Completed [facility] Influenza Virus Vaccine Quad IM, Preserv and ABX Free 6 MO-64 YRS (FLUCELVAX) Unknown Completed [facility] TDAP Unknown Completed [facility] Influenza Virus Vaccine Quad IM, Preserv and ABX Free 6 MO-64 YRS (FLUCELVAX) Unknown Completed [facility] TDAP Unknown Completed [facility] Influenza Virus Vaccine Quad IM, Preserv and ABX Free 6 MO-64 YRS (FLUCELVAX) Unknown Completed [facility] TDAP Unknown Completed [facility] Influenza Virus Vaccine Quad IM, Preserv and ABX Free 6 MO-64 YRS (FLUCELVAX) Unknown Completed [facility] TDAP Unknown Completed [facility] Influenza Virus Vaccine Quad IM, Preserv and ABX Free 6 MO-64 YRS (FLUCELVAX) Unknown Completed [facility] TDAP Unknown Completed [facility] Influenza Virus Vaccine Quad IM, Preserv and ABX Free 6 MO-64 YRS (FLUCELVAX) Unknown Completed [facility] TDAP Unknown Completed [facility] Influenza Virus Vaccine Quad IM, Preserv and ABX Free 6 MO-64 YRS (FLUCELVAX) Unknown Completed [facility] TDAP Unknown Completed [facility] Influenza Virus Vaccine Quad IM, Preserv and ABX Free 6 MO-64 YRS (FLUCELVAX) Unknown Completed [facility] TDAP Unknown Completed [facility] Influenza Virus Vaccine Quad IM, Preserv and ABX Free 6 MO-64 YRS (FLUCELVAX) Unknown Completed [facility] TDAP Unknown Completed [facility] Flu Injectable MDCK Pres-Free (FLUCELVAX) Unknown Completed [facility] Influenza Virus Vaccine Quad IM, Preserv and ABX Free 6 MO-64 YRS (FLUCELVAX) Unknown Completed [facility] TDAP Unknown Completed [facility] Flu Injectable MDCK Pres-Free (FLUCELVAX) Unknown Completed [facility] Influenza Virus Vaccine Quad IM, Preserv and ABX Free 6 MO-64 YRS (FLUCELVAX) Unknown Completed [facility] TDAP Unknown Completed [facility] Flu Injectable MDCK Pres-Free (FLUCELVAX) Unknown Completed [facility] Influenza Virus Vaccine Quad IM, Preserv and ABX Free 6 MO-64 YRS (FLUCELVAX) Unknown Completed [facility] TDAP Unknown Completed [facility] Influenza Virus Vaccine Quad IM, Preserv and ABX Free 6 MO-64 YRS (FLUCELVAX) Unknown Completed [facility] TDAP Unknown Completed [facility] Flu Injectable MDCK Pres-Free (FLUCELVAX) Unknown Completed [facility] Influenza Virus Vaccine Quad IM, Preserv and ABX Free 6 MO-64 YRS (FLUCELVAX) Unknown Completed [facility] TDAP Unknown Completed [facility] Flu Injectable MDCK Pres-Free (FLUCELVAX) Unknown Completed [facility] Influenza Virus Vaccine Quad IM, Preserv and ABX Free 6 MO-64 YRS (FLUCELVAX) Unknown Completed [facility] TDAP Unknown Completed [facility] Influenza Virus Vaccine Quad IM, Preserv and ABX Free 6 MO-64 YRS (FLUCELVAX) Unknown Completed [facility] Flu Injectable MDCK Pres-Free (FLUCELVAX) Unknown Completed [facility] Influenza Virus Vaccine Quad IM, Preserv and ABX Free 6 MO-64 YRS (FLUCELVAX) Unknown Completed [facility] TDAP Unknown Completed [facility] Flu Injectable MDCK Pres-Free (FLUCELVAX) Unknown Completed [facility] Influenza Virus Vaccine Quad IM, Preserv and ABX Free 6 MO-64 YRS (FLUCELVAX) Unknown Completed [facility] TDAP Unknown Completed [facility] Influenza Virus Vaccine Quad IM, Preserv and ABX Free 6 MO-64 YRS (FLUCELVAX) Unknown Completed [facility] Influenza Virus Vaccine Quad IM, Preserv and ABX Free 6 MO-64 YRS (FLUCELVAX) Unknown Completed [facility] Influenza Virus Vaccine Quad IM, Preserv and ABX Free 6 MO-64 YRS (FLUCELVAX) Unknown Completed [facility] Influenza Virus Vaccine Quad IM, Preserv and ABX Free 6 MO-64 YRS (FLUCELVAX) Unknown Completed [facility] Vital Signs Vital Name Observation Time Observation Value Comments S ource Systolic blood pressure 2024-07-29 21:16:00 101 mm[Hg] [facility] Diastolic blood pressure 2024-07-29 21:16:00 72 mm[Hg] [facility] Heart rate 2024-07-29 21:16:00 102 /min [facility] Respiratory rate 2024-07-29 21:16:00 18 /min [facility] Body height 2024-07-29 21:16:00 170.2 cm [facility] Body weight 2024-07-29 21:16:00 71.033 kg Univ [facility] BMI 2024-07-29 21:16:00 24.53 kg/m2 [facility] Oxygen saturation in Arterial blood by Pulse oximetry 2024-07-29 21:16:00 96 /min [facility] Systolic blood pressure 2024-07-05 18:05:00 117 mm[Hg] [facility] Diastolic blood pressure 2024-07-05 18:05:00 87 mm[Hg] [facility] Heart rate 2024-07-05 18:05:00 101 /min [facility] Body temperature 2024-07-05 18:05:00 36.67 Lashay [facility] Respiratory rate 2024-07-05 18:05:00 18 /min [facility] Body weight 2024-07-05 18:05:00 70.444 kg [facility] BMI 2024-07-05 18:05:00 24.32 kg/m2 [facility] Oxygen saturation in Arterial blood by Pulse oximetry 2024-07-05 18:05:00 97 /min [facility] Systolic blood pressure 2024-06-25 21:20:00 103 mm[Hg] [facility] Diastolic blood pressure 2024-06-25 21:20:00 67 mm[Hg] [facility] Heart rate 2024-06-25 21:20:00 89 /min [facility] Body temperature 2024-06-25 21:20:00 36.72 [place] [facility] Respiratory rate 2024-06-25 21:20:00 18 /min [facility] Body height 2024-06-25 21:20:00 170.2 cm [facility] Body weight 2024-06-25 21:20:00 71.305 kg [facility] BMI 2024-06-25 21:20:00 24.62 kg/m2 [facility] Systolic blood pressure 2024-04-10 16:36:00 102 mm[Hg] [facility] Diastolic blood pressure 2024-04-10 16:36:00 69 mm[Hg] [facility] Heart rate 2024-04-10 16:36:00 83 /min [facility] Body temperature 2024-04-10 16:36:00 36.67 [place] [facility] Respiratory rate 2024-04-10 16:36:00 18 /min [facility] Body height 2024-04-10 16:36:00 170.2 cm [facility] Body weight 2024-04-10 16:36:00 65.998 kg [facility] BMI 2024-04-10 16:36:00 22.79 kg/m2 [facility] Systolic blood pressure 2024-03-07 18:20:00 98 mm[Hg] [facility] Diastolic blood pressure 2024-03-07 18:20:00 58 mm[Hg] [facility] Heart rate 2024-03-07 18:20:00 80 /min [facility] Respiratory rate 2024-03-07 18:20:00 16 /min [facility] Oxygen saturation in Arterial blood by Pulse oximetry 2024-03-07 18:20:00 100 /min [facility] Body temperature 2024-03-07 13:18:00 36.28 [place] [facility] Body height 2024-03-06 05:36:00 170.2 cm [facility] Body weight 2024-03-06 05:36:00 75.751 kg [facility] BMI 2024-03-06 05:36:00 26.16 kg/m2 [facility] Systolic blood pressure 2024-03-05 21:15:00 119 mm[Hg] [facility] Diastolic blood pressure 2024-03-05 21:15:00 85 mm[Hg] [facility] [place] Heart rate 2024-03-05 21:15:00 107 /min [facility] Respiratory rate 2024-03-05 21:15:00 18 /min [facility] Body height 2024-03-05 21:15:00 170.2 [facility] 2024-03-05 21:15:00 75.751 [facility] BMI 2024-03-05 21:15:00 26.16 kg/m2 [facility] Systolic blood pressure 2024-02-25 21:17:00 109 mm[Hg] [facility] Diastolic blood pressure 2024-02-25 21:17:00 78 mm[Hg] [facility] Heart rate 2024-02-25 21:17:00 88 /min [facility] Res[facility] rate 2024-02-25 21:17:00 16 /min [facility] Body height 2024-02-25 21:17:00 170.2 cm [facility] Body weight 2024-02-25 21:17:00 73.483 kg [facility] BMI 2024-02-25 21:17:00 25.37 kg/m2 [facility] Systolic blood pressure 2024-02-18 18:07:00 131 mm[Hg] [facility] [place] Diastolic blood pressure 2024-02-18 18:07:00 83 mm[Hg] [facility] Heart rate 2024-02-18 18:07:00 100 /min [facility] Respiratory rate 2024-02-18 18:07:00 18 /min [facility] Body height 2024-02-18 18:07:00 170.2 cm [facility] [place] Body weight 2024-02-18 18:07:00 73.483 kg [facility] [place] BMI 2024-02-18 18:07:00 25.37 kg/m2 [facility] Systolic blood pressure 2024-02-11 15:38:00 110 mm[Hg] [facility] Diastolic blood pressure 2024-02-11 15:38:00 72 mm[Hg] [facility] Heart rate 2024-02-11 15:38:00 99 /min [facility] Respiratory rate 2024-02-11 15:38:00 18 /min [facility] Body height 2024-02-11 15:38:00 170.2 cm [facility] Body weight 2024-02-11 15:38:00 72.576 kg [facility] BMI 2024-02-11 15:38:00 25.06 kg/m2 [facility] Heart rate 2024-02-01 23:15:00 112 /min [facility] Oxygen saturation in Arterial blood by Pulse oximetry 2024-02-01 23:15:00 100 /min [facility] Systolic blood pressure 2024-02-01 21:30:00 117 mm[Hg] [facility] Diastolic blood pressure 2024-02-01 21:30:00 78 mm[Hg] [facility] Body temperature 2024-02-01 21:24:00 36.56 Lashay [facility] Respiratory rate 2024-02-01 21:24:00 18 /min [facility] Body height 2024-02-01 21:02:00 170.2 cm [facility] Body weight 2024-02-01 21:02:00 70.67 kg [facility] BMI 2024-02-01 21:02:00 24.40 kg/m2 [facility] Systolic blood pressure 2024-01-24 13:29:00 115 mm[Hg] [facility] Diastolic blood pressure 2024-01-24 13:29:00 75 mm[Hg] [facility] Heart rate 2024-01-24 13:29:00 76 /min [facility] Respiratory rate 2024-01-24 13:29:00 16 /min [facility] Body height 2024-01-24 13:29:00 170.2 cm [facility] Body weight 2024-01-24 13:29:00 71.668 kg [facility] BMI 2024-01-24 13:29:00 24.75 kg/m2 [facility] Systolic blood pressure 2024-01-10 14:10:00 98 mm[Hg] [facility] Diastolic blood pressure 2024-01-10 14:10:00 67 mm[Hg] [facility] Heart rate 2024-01-10 14:10:00 102 /min [facility] Respiratory rate 2024-01-10 14:10:00 18 /min [facility] Body height 2024-01-10 14:10:00 170.2 cm [facility] Body weight 2024-01-10 14:10:00 68.493 kg [facility] BMI 2024-01-10 14:10:00 23.65 kg/m2 Univ [facility] Systolic blood pressure 2023-12-19 20:45:00 119 mm[Hg] [facility] Diastolic blood pressure 2023-12-19 20:45:00 74 mm[Hg] [facility] Heart rate 2023-12-19 20:45:00 80 /min [facility] Body height 2023-12-19 20:45:00 170.2 cm [facility] Body weight 2023-12-19 20:45:00 68.13 kg [facility] BMI 2023-12-19 20:45:00 23.52 kg/m2 [facility] Systolic blood pressure 2023-11-12 21:08:00 109 mm[Hg] [facility] Diastolic blood pressure 2023-11-12 21:08:00 71 mm[Hg] [facility] Heart rate 2023-11-12 21:08:00 90 /min [facility] Respiratory rate 2023-11-12 21:08:00 18 /min [facility] Body height 2023-11-12 21:08:00 170.2 cm [facility] Body weight 2023-11-12 21:08:00 63.957 kg [facility] BMI 2023-11-12 21:08:00 22.08 kg/m2 [facility] Systolic blood pressure 2023-10-15 21:10:00 98 mm[Hg] [facility] Diastolic blood pressure 2023-10-15 21:10:00 64 mm[Hg] [facility] Heart rate 2023-10-15 21:10:00 86 /min [facility] Respiratory rate 2023-10-15 21:10:00 18 /min [facility] Body height 2023-10-15 21:10:00 170.2 cm [facility] Body weight 2023-10-15 21:10:00 62.143 kg [facility] BMI 2023-10-15 21:10:00 21.46 kg/m2 [facility] Oxygen saturation in Arterial blood by Pulse oximetry 2023-09-19 21:09:00 100 /min [facility] Systolic blood pressure 2023-09-19 21:09:00 98 mm[Hg] [facility] Diastolic blood pressure 2023-09-19 21:09:00 67 mm[Hg] [facility] Heart rate 2023-09-19 21:09:00 95 /min [facility] Body temperature 2023-09-19 21:09:00 36.67 Lashay [facility] Respiratory rate 2023-09-19 21:09:00 16 /min [facility] Body height 2023-09-19 21:09:00 170.2 cm [facility] Body weight 2023-09-19 21:09:00 60.192 kg [facility] BMI 2023-09-19 21:09:00 20.78 kg/m2 [facility] Systolic blood pressure 2023-08-22 20:06:00 113 mm[Hg] [facility] Diastolic blood pressure 2023-08-22 20:06:00 73 mm[Hg] [facility] Heart rate 2023-08-22 20:06:00 77 /min [facility] Respiratory rate 2023-08-22 20:06:00 18 /min [facility] Body height 2023-08-22 20:06:00 170.2 cm [facility] Body weight 2023-08-22 20:06:00 59.421 kg [facility] BMI 2023-08-22 20:06:00 20.52 kg/m2 [facility] Procedures Procedure Date / Time Performed Performing Clinicia n Source POCT TEST 2024-06-25 21:27:00 Henri Mcculloughsol [facility] CBC WITH DIFF 2024-03-07 09:16:00 Leila Mccullough [facility] CENTRAL NEURAXIAL BLOCK 2024-03-06 14:00:00 Darian Morales [facility] CBC WITH DIFF 2024-03-06 05:56:00 Leila Mccullough [facility] HEPATITIS B SURFACE ANTIGEN 2024-03-06 05:56:00 [facility] HB ABO GROUPING 2024-03-06 05:56:00 [facility], [facility] RHO (D) IMMUNE GLOBULIN 2024-03-06 05:56:00 [facility] ANGELA ONLY - RPR 2024-03-06 05:56:00 [facility] HIV 1/2 AG-AB WITH REFLEX 2024-03-06 05:56:00 [facility] POCT URINALYSIS W/O SPECIFIC GRAVITY 2024-03-05 00:00:00 Sadia [facility] FLU VACC ([id number]), 6 MO-64 YRS, .5ML, IM, TIV (FLUCELVAX) 2024-02-25 21:32:40 [facility] POCT URINALYSIS W/O SPECIFIC GRAVITY 2024-02-25 00:00:00 [facility], [facility] POCT URINALYSIS W/O SPECIFIC GRAVITY 2024-02-18 00:00:00 Sadia [facility] SECOND AND THIRD TRIMESTER ULTRASOUND 2024-02-17 18:52:00 Sadia [facility] DSU PRE-OP 2024-02-11 18:33:04 Doctor Morro zuñiga, [place] [facility] POCT URINALYSIS W/O SPECIFIC GRAVITY 2024-02-11 00:00:00 Sadia [facility] POCT URINALYSIS W/O SPECIFIC GRAVITY 2024-01-24 00:00:00 Sadia [facility] POCT URINALYSIS W/O SPECIFIC GRAVITY 2024-01-10 00:00:00 Sadia [facility] TDAP VACCINE, >11 YRS, IM 2023-12-19 20:59:30 JeffDempsey, [facility] POCT URINALYSIS W/O SPECIFIC GRAVITY 2023-12-19 00:00:00 Sadia [facility] POCT URINALYSIS W/O SPECIFIC GRAVITY 2023-11-12 00:00:00 Sadia [facility] SCANNED LAB RESULTS 2023-10-31 16:08:11 Doctor Kit leyva, [place] [facility] SECOND AND THIRD TRIMESTER ULTRASOUND 2023-10-23 22:06:10 Sadia [facility] POCT URINALYSIS W/O SPECIFIC GRAVITY 2023-10-15 00:00:00 Sadia [facility] POCT URINALYSIS W/O SPECIFIC GRAVITY 2023-09-19 00:00:00 Sadia [facility] <14 WEEKS US LIMITED 2023-08-22 20:29:22 Sadia [facility] FLU VACC ([id number]), 6 MO-64 YRS, .5ML, IM, QUAD (FLUCELVAX) 2023-08-22 20:18:53 Sadia [facility] ASSIGNMENT OF BENEFITS 2023-08-22 19:38:18 Docto r Unassigned, [place] [facility] POCT TEST 2023-08-22 00:00:00 Sadia [facility] POCT URINALYSIS W/O SPECIFIC GRAVITY 2023-08-22 00:00:00 [facility] Encounters Start Date/Time End Date/Time Encounter Type Admission Type Attending [facility] Facility Care Department Encounter ID Source 2024-02-01 21:39:27 Outpatient P PATIÑONAE Dickey, DARIELAMike PATIÑOSUSHANT Dickey [facility] ROSE MARY [id number] [facility] 2024-08-21 00:00:00 2024-08-24 08:04:48 [facility] 1..114 350.1.13.10 4.2.7.2.686 [id number] [facility] 2024-07-20 00:00:00 2024-08-22 18:19:23 Patient Secure Msg Doctor Unassigned, [place] Doctor Unassigned, [place] [facility] 1..114 350.1.13.10 4.2.7.2.686 [id number] [facility] 2024-08-19 00:00:00 2024-08-19 10:14:55 [facility]phone [facility] 1..114 350.1.13.10 4.2.7.2.686 [id number] [facility] 2024-02-11 00:00:00 2024-08-15 07:07:49 Orders Only Doctor Unassigned, [place] Doctor Unassigned, [place] [facility] (EUFEMIA) 1..114 350.1.13.10 4.2.7.2.686 [id number] [facility] 2023-10-31 00:00:00 2024-08-15 02:06:01 Orders Only Doctor Unassigned, [place] Doctor Unassigned, [place] [facility] (EUFEMIA) 1.2.840.114 350.1.13.10 4.2.7.2.686 [id number] [facility] 2024-07-29 16:15:00 2024-07-29 16:15:00 [facility] [employer] Visit 2, Adc Lab ObMarcin Douglas 2, [facility] 1.2.840.114 350.1.13.10 4.2.7.2.686 [id number] [facility] 2024-07-29 15:00:00 2024-07-29 15:29:42 Outpatient R OBI-CARLOS , MARCIN OBI-CARLOS , MARCIN [facility] [id number] [facility] 2024-07-29 15:00:00 2024-07-29 15:29:42 Office Visit Oblachelle-Carlos Marcin [facility] 1.2.840.114 350.1.13.10 4.2.7.2.686 [id number] [facility] 2024-07-21 15:00:00 2024-07-21 15:00:00 Outpatient R OBI-CARLOS , MARCIN OBI-CARLOS , MARCIN [facility] [id number] [facility] 2024-07-05 11:40:00 2024-07-05 12:32:38 Outpatient R ALLIE ROSARIO [facility] [id number] [facility] 2024-07-05 11:40:00 2024-07-05 12:32:38 Urgent Care Allie Rosario Unknown, Attending [facility] 1..840.114 350.1.13.10 4.2.7.2.686 [id number] [facility] 2024-06-25 15:00:00 2024-06-25 15:35:53 Outpatient R CAROLYNN S, DARIELA PATIÑO-SUSHANT S [facility] [id number] [facility] 2024-06-25 15:00:00 2024-06-25 15:35:53 Office Visit Carolynn dickey [facility] 1.840.114 350.1.13.10 4.2.7.2.686 [id number] [facility] 2024-06-22 16:30:00 2024-06-22 16:30:00 Outpatient R MARIO GRANDA [facility] [id number] [facility] 2024-06-19 00:00:00 2024-06-19 12:09:15 Telephone Mario Granda [facility] 1.840.114 350.1.13.10 4.2.7.2.686 [id number] [facility] 2024-06-15 16:30:00 2024-06-15 16:30:00 Outpatient R MARIO GRANDA [facility] [id number] [facility] 2024-05-27 00:00:00 2024-05-27 15:38:31 Telephone Carolynn dickey [facility] 1.840.114 350.1.13.10 4.2.7.2.686 [id number] [facility] 2024-05-21 15:00:00 2024-05-21 15:00:00 Outpatient R CAROLYNN Dickey, DARIELA PATIÑ[facility]USHANT [facility] [id number] [facility] 2024-04-30 00:00:00 2024-04-30 17:05:33 [facility] 1.2.840.114 350.1.13.10 4.2.7.2.686 [id number] [facility] 2024-04-30 09:15:00 2024-04-30 09:15:00 Outpatient R PATIÑO-SUSHANT S, DARIELA PATIÑO-SUSHANT S, DARIELA [facility] [id number] [facility] 2024-04-23 10:30:00 2024-04-23 10:30:00 Outpatient R PATIÑO-SUSHANT S, DARIELA PATIÑO-SUSHANT S, DARIELA [facility] [id number] [facility] 2024-04-22 00:00:00 2024-04-22 10:54:41 Telephone Carolynn sLeilal [facility] 1.840.114 350.1.13.10 4.2.7.2.686 [id number] 134 [id number] [facility] 2024-04-10 11:15:00 2024-04-10 11:56:22 Outpatient R PATIÑO-SUSHANT S, DARIELA PATIÑO-SUSHANT S, DARIELA [facility] [id number] [facility] 2024-04-10 11:15:00 2024-04-10 11:56:22 Routine Visit Eduardi sHenriDariela [facility] BUILD[facility] 1..840.114 350.1.13.10 4.2.7.2.686 [id number] 134 [id number] [facility] 2024-02-26 00:00:00 2024-03-28 18:20:43 Patient Secure Msg Mimi-Sushant s, Dariela [facility] BUILD[facility] 1.2.840.114 350.1.13.10 4.2.7.2.686 [id number] 134 [id number] [facility] 2024-02-11 00:00:00 2024-03-14 18:21:16 Patient Secure Msg Doctor Unassigned, [place] Doctor Unassigned, [place] [facility] 1.2.840.114 350.1.13.10 4.2.7.2.686 [id number] 134 [id number] [facility] 2024-03-06 00:10:00 2024-03-07 16:00:00 Inpatient P PATIÑO-SUSHANT S, DARIELA PATIÑO-SUSHANT S, DARIELA [facility] RO[facility] MARY [id number] [facility] 2024-03-06 00:10:00 2024-03-07 16:00:00 Hospital Encounter Patiño-Sushant s, Dariela [facility] 1.2840.114 350.1.13.10 4.2.7.2.686 [id number] [facility] 2024-03-06 09:05:00 2024-03-06 14:59:00 Anesthesia Event Darian Morales [facility] 1.2.840.114 350.1.13.10 4.2.7.2.686 [id number] [facility] 2024-03-05 15:45:00 2024-03-05 16:28:47 Outpatient R PATIÑO-SUSHANT S, DARIELA PATIÑO-SUSHANT S, DARIELA [facility] [id number] [facility] 2024-03-05 15:45:00 2024-03-05 16:28:47 Routine Visit Patiño-Sushant s, Dariela [facility] 1.2.840.114 350.1.13.10 4.2.7.2.686 [id number] 134 [id number] [facility] 2024-03-03 00:00:00 2024-03-03 14:11:23 Telephone Henri Hutchinssol [facility] N[facility] BUILD[facility] 1.2.840.114 350.1.13.10 4.2.7.2.686 [id number] [facility] 2024-01-29 00:00:00 2024-02-29 18:19:22 Patient Secure Msg Eduardi sHenriDariela [facility] N[facility] BU[facility] 1.2.840.114 350.1.13.10 4.2.7.2.686 [id number] [facility] 2024-02-28 00:00:00 2024-02-28 11:30:46 [facility] 1.2.840.114 350.1.13.10 4.2.7.2.686 [id number] 134 [id number] [facility] 2024-02-25 00:00:00 2024-02-25 16:59:17 Telephone Dariela Hutchins [facility] N[facility]ILD[facility] 1.2.840.114 350.1.13.10 4.2.7.2.686 [id number] 134 [id number] [facility] 2024-02-25 16:15:00 2024-02-25 16:32:20 Outpatient R PATIÑO-SUSHANT S, DARIELA PATIÑO-SUSHANT S, DARIELA [facility] [id number] [facility] 2024-02-25 16:15:00 2024-02-25 16:32:20 Routine Visit Henri Hutchinssol [facility] BU[facility] 1.2.840.114 350.1.13.10 4.2.7.2.686 [id number] 134 [id number] [facility] 2024-02-18 13:15:00 2024-02-18 13:23:54 Outpatient R PATIÑO-SUSHANT S, DARIELA PATIÑO-SUSHANT S, DARIELA [facility] [id number] [facility] 2024-02-18 13:15:00 2024-02-18 13:23:54 Routine Visit Patiño-Sushant s, Dariela [facility] 1.2.840.114 350.1.13.10 4.2.7.2.686 [id number] 134 [id number] [facility] 2024-02-17 13:30:00 2024-02-17 13:51:39 Outpatient P SARAH LAWS SHANNON [facility] [id number] [facility] 2024-02-17 13:30:00 2024-02-17 13:51:39 [employer] Visit Ultrasound, Sarah Church [facility] [employer] POLICE OFFICER [facility] 1.2.840.114 350.1.13.10 4.2.7.2.686 [id number] [facility] 2024-02-11 00:00:00 2024-02-11 16:08:11 Telephone Patiño-Sushant s, Dariela [facility] 1.2.840.114 350.1.13.10 4.2.7.2.686 [id number] 134 [id number] [facility] 2024-02-11 11:15:00 2024-02-11 11:30:00 [employer] Visit 2, Adc Lab Patiño-Sushant s, Dariela 2, Adc Lab [facility] BUILD[facility] 1.2.840.114 350.1.13.10 4.2.7.2.686 [id number] [facility] 2024-02-11 10:30:00 2024-02-11 10:57:20 Outpatient R PATIÑO-SUSHANT S, DARIELA PATIÑO-SUSHANT S, DARIELA [facility] [id number] [facility] 2024-02-11 10:30:00 2024-02-11 10:57:20 Routine Visit Henri Hutchinssol [facility] 1.2.840.114 350.1.13.10 4.2.7.2.686 [id number] 134 [id number] [facility] 2024-01-05 00:00:00 2024-02-08 18:22:08 Patient Secure Msg Carolynn s [facility] 1.2.840.114 350.1.13.10 4.2.7.2.686 [id number] [facility] 2024-02-01 16:23:00 2024-02-01 20:42:00 Outpatient P WESLEY BOBO VIEN [facility] ROSE MARY [id number] [facility] 2024-02-01 16:23:00 2024-02-01 20:42:00 Hospital Encounter Vanessa Valadez Vien Cam [facility] AT [facility] 1..840.114 350.1.13.10 4.2.7.2.686 [id number] [facility] 2023-12-25 00:00:00 2024-01-25 18:20:04 Patient Secure g Eduardi keli [facility] 1.2840.114 350.1.13.10 4.2.7.2.686 [id number] [facility] 2024-01-24 08:00:00 2024-01-24 08:42:06 Outpatient R CAROLYNN Dickey D[facility]ELAANNEMARIE [facility] [id number] [facility] 2024-01-24 08:00:00 2024-01-24 08:42:06 Routine Visit Leila Hutchinsl [facility] BU[facility] 1.2840.114 350.1.13.10 4.2.7.2.686 [id number] 134 [id number] [facility] 2024-01-16 00:00:00 2024-01-16 13:11:01 Telephone Dariela Hutchins [facility] 1.2.840.114 350.1.13.10 4.2.7.2.686 [id number] [facility] 2024-01-10 09:00:00 2024-01-10 09:26:39 Outpatient R ACROLYNN Dickey, DARIELA [facility]USHANT S, [facility] [id number] [facility] 2024-01-10 09:00:00 2024-01-10 09:26:39 Routine Visit Carolynn sLeilal [facility] 1.2840.114 350.1.13.10 4.2.7.2.686 [id number] [facility] 2024-01-07 08:00:00 2024-01-07 08:00:00 Outpatient R MIMI-SUSHANT S, DARIELA MIMI-SUSHANT S, DARIELA [facility] [id number] [facility] 2023-12-31 00:00:00 2024-01-02 12:33:49 Telephone Henri Hutchinssol [facility] 1.0.114 350.1.13.10 4.2.7.2.686 [id number] 134 [id number] [facility] 2023-11-27 00:00:00 2023-12-28 18:15:39 Patient Secure Msg Doctor Unassigned, [place] [facility] 1.20.114 350.1.13.10 4.2.7.2.686 [id number] 134 [id number] [facility] 2023-12-19 16:00:00 2023-12-19 16:03:18 Outpatient R PATIÑO-SUSHANT S, DARIELA [facility]USHANT S, [facility] [id number] [facility] 2023-12-19 16:00:00 2023-12-19 16:03:18 Routine Visit Patiño-Sushant s, [facility] 1.2840.114 350.1.13.10 4.2.7.2.686 [id number] [facility] 2023-11-27 07:30:00 2023-11-27 09:19:23 Outpatient R PATIÑO-SUSHANT S, DARIELA PATIÑO-SUSHANT S, [facility] [id number] [facility] 2023-11-27 07:30:00 2023-11-27 07:45:00 [employer] Visit Lab, Ang - Mehul Patiño-Sushant s, [facility] 1..840.114 350.1.13.10 4.2.7.2.686 [id number] [facility] 2023-11-12 16:15:00 2023-11-12 16:17:52 Outpatient R PATIÑO-SUSHANT S, DARIELA PATIÑO-SUSHANT S, [facility] [id number] [facility] 2023-11-12 16:15:00 2023-11-12 16:17:52 Routine Visit Patiño-Sushant s, [facility] 1.2840.114 350.1.13.10 4.2.7.2.686 [id number] [facility] 2023-10-23 13:00:00 2023-10-23 14:10:01 Outpatient AMALIA MARSH [facility] [id number] [facility] 2023-10-23 13:00:00 2023-10-23 14:10:01 [employer] Visit Ultrasound, Amalia Zambrano [facility] [employer] POLICE OFFICER [facility] 1.0.114 350.1.13.10 4.2.7.2.686 [id number] [facility] 2023-10-15 16:00:00 2023-10-15 16:20:51 Routine Visit Patiño-Sushant s [facility] 1.0.114 350.1.13.10 4.2.7.2.686 [id number] [facility] 2023-10-15 16:00:00 2023-10-15 16:20:51 Outpatient R PATIÑO-SUSHANT S, DARIELA PATIÑO-SUSHANT S, [facility] [id number] [facility] 2023-09-19 17:00:00 2023-09-19 17:08:38 [employer] Visit Lab, Conrad Patiño-Sushant s [facility] 1..114 350.1.13.10 4.2.7.2.686 [id number] [facility] 2023-09-19 16:15:00 2023-09-19 16:28:58 Outpatient R PATIÑO-SUSHANT S, DARIELA PATIÑO-SUSHANT S, [facility] [id number] [facility] 2023-09-19 16:15:00 2023-09-19 16:28:58 Routine Visit Patiño-Sushant s, [facility] 1..114 350.1.13.10 4.2.7.2.686 [id number] [facility] 2023-09-05 00:00:00 2023-09-05 00:00:00 Telephone Carolynn dickey [facility] 1.840.114 350.1.13.10 4.2.7.2.686 [id number] [facility] 2023-08-27 11:15:00 2023-08-27 11:30:00 [employer] Visit Draw, [facility] Pathology [facility] 1.0.114 350.1.13.10 4.2.7.2.686 [id number] [facility] 2023-08-27 11:15:00 2023-08-27 11:15:00 Outpatient R PATHOLOGY [facility] [id number] [facility] 2023-08-23 00:00:00 2023-08-23 00:00:00 Telephone Carolynn dickey [facility] 1.0.114 350.1.13.10 4.2.7.2.686 [id number] [facility] 2023-08-22 14:00:00 2023-08-22 14:43:28 Outpatient R DARIELA HUTCHINS [facility] [id number] [facility] 2023-08-22 14:00:00 2023-08-22 14:30:00 Initial Visit Carolynn dickey Dariela [facility] 1.840.114 350.1.13.10 4.2.7.2.686 [id number] [facility] 2023-08-22 00:00:00 2023-08-22 00:00:00 Orders Only Doctor Unassigned, [place] [facility] 1.840.114 350.1.13.10 4.2.7.2.686 [id number] [facility] Results Test Description Test Time Test Comments Results Result Co mments Source [facility] with [id number] 11:08:01* Test Item Value Reference Range Interpretation Comme nts WBC (test code = 6690-2) 14.77 4.30-11.10 H RBC (test code = 789-8) 3.47 3.93-5.25 L HGB (test code = 718-7) 10.0 g/dL 11.6-15.0 L HCT (test code = 4544-3) 31.2 % 35.7-45.2 L MCV (test code = 787-2) 89.9 fL 80.6-95.5 MCH (test code = 785-6) 28.8 pg 25.9-32.8 MCHC (test code = 786-4) 32.1 g/dL 31.6-35.1 RDW-SD (test code = 31096-5) 43.6 fL 39.0-49.9 RDW-CV (test code = 788-0) 13.2 % 12.0-15.5 PLT (test code = 777-3) 254 166-358 MPV (test code = 43646-1) 11.9 fL 9.5-12.9 NRBC/100 WBC (test code = 0186045871) 0.0 0.0-10.0 NRBC x10^3 (test code = 2437064658) See_Comment [Automated message] The system which generated this result transmitted reference range: 10*3/?L. The reference range was not used to interpret this result as normal/abnormal. GRAN MAT (NEUT) % (test code = 770-8) 77.5 % IMM GRAN % (test code = 5514195684) 1.10 % LYMPH % (test code = 736-9) 12.7 % MONO % (test code = 5905-5) 8.1 % EOS % (test code = 713-8) 0.4 % BASO % (test code = 706-2) 0.2 % GRAN MAT x10^3(ANC) (test code = 4986105756) 11.45 10*3/uL 1.88-7.09 H IMM GRAN x10^3 (test code = 1975847568) 0.16 10*3/uL 0.00-0.06 H LYMPH x10^3 (test code = 731-0) 1.87 10*3/uL 1.32-3.29 MONO x10^3 (test code = 742-7) 1.20 10*3/uL 0.33-0.92 H EOS x10^3 (test code = 711-2) 0.06 10*3/uL 0.03-0.39 BASO x10^3 (test code = 704-7) 0.03 10*3/uL 0.01-0.07 Lab Interpretation (test code = 23531-9) Abnormal [facility] IMMUNE [id number] 19:31:33* Test Item Value Reference Range Interpretation Comme nts RHIG CANDIDATE? (test code = 5188) No- see comment Patient is not a candidate for RhIg- Patient is Rh Positive.Performed at [facility] Laboratory Services - [facility] Blood [address] [place], [place] [id number] Free: [phone] No. [id number] [facility] WorthHepatitis B Surface [id number] 17:32:23 * Test Item Value Reference Range Interpretation Comme nts HBsAg Semi-Quantitative (tyson t code = 5195-3) 0.07 Negative [facility] Worth[facility] Neuraxial [id number] 14:00:00 Darian Morales MD ? ? 03/06/2024 ?8:04 PM Central Neuraxial Block Date/Time: 03/06/2024 9:00 AM Performed by: Darian Morales MDAuthorized by: Darian Morales MD ?Patient Location: OBReason forBlock: OB request, Patient request, Labor analgesia, Surgical anesthesia and Post-op pain managementStaff: ?Anesthesiologist: Darian Morales MD ?Performed by: anesthesiologistPreanesthetic Checklist: patient identified, IV checked, risks and benefits explained, monitors and equipment checked, timeout performed, pre- op evaluation, site marked and anesthesia consentProcedure: ?Type of Neuraxial: Epidural and Continuous ? Sterility Prep cap, drape, gloves, hand hygiene and mask ? ?Sedation Level no sedation ?Patient Position: sitting ?Prep: Betadine and patient draped ? ?Monitoring: heart rate, continuous pulse ox, heart rate / toco and NIBP ?Location: lumbar (1-5) ?Lumbar: L2-L3 ?Approach: midline ? ?Technique: GRAZYNA air and catheter ?Guidance with: landmark technique}Epidural/Spinal Gilbert and/or Catheter: ?Epidural/Spinal Kit: imgScrimmage ([employer]) ?Needle Type: Tuohy ?Needle Gauge: 17 G ?Needle Length: 3.5 in (8.89 cm) ?Needle Insertion Depth: 5 ?Catheter Type: multiport ? ?Catheter Size: 18 G ? ?Catheter at Skin Depth: 12 ?Number of Attempts: 1 ?Test Dose: lidocaine 1.5%with epinephrine 1-to-200,000 and negative ? ?Dose: 3 cc ? ?Catheter Securement Method: surgical tape and TegadermAssessment: ?Sensory Level: below T10 ?Lumbar: T12 ?Block Outcome: positive pain relief and successful block ? ?Procedure Assessment: patient tolerated procedure well with no complicatio nsNotes: ? Smooth and atraumatic, (+) Local, (+) [facility]Univers[facility]2 Ag-Ab with [id number] 08:51:15* Test Item Value Reference Range Interpretation Comme nts HIV Semi-quantitative (test code = 17733-0) 0.16 Negative ABRIL (test code = ABRIL) Non-reactive for HIV-1 antigen and HIV-1/HIV-2 antibodies. ?No laboratory evidence of HIV infection. ?Repeat in 2-4 weeks if acute HIV infection is suspected. [facility] or Angela Only - [id number] 08:32:07* Test Item Value Reference Range Interpretation Comme nts RPR (Qualitative) (test code = 29068-8) Nonreactive Nonreactive Lab Interpretation (test cod e = 60034-2) Normal [facility] with [id number] 07:44:47* Test Item Value Reference Range Interpretation Comme nts WBC (test code = 6690-2) 8.71 4.30-11.10 RBC (test code = 789-8) 3.56 3.93-5.25 L HGB (test code = 718-7) 10.3 g/dL 11.6-15.0 L HCT (test code = 4544-3) 31.6 % 35.7-45.2 L MCV (test code = 787-2) 88.8 fL 80.6-95.5 MCH (test code = 785-6) 28.9 pg 25.9-32.8 MCHC (test code = 786-4) 32.6 g/dL 31.6-35.1 RDW-SD (test code = 94254-8) 43.5 fL 39.0-49.9 RDW-CV (test code = 788-0) 13.2 % 12.0-15.5 PLT (test code = 777-3) 270 166-358 MPV (test code = 10568-0) 12.1 fL 9.5-12.9 NRBC/100 WBC (test code = 0936136295) 0.0 0.0-10.0 NRBC x10^3 (test code = 0707324505) See_Comment [Automated messa ge] The system which generated this result transmitted reference range: 10*3/?L. The reference range was not used to interpret this result as normal/abnormal. GRAN MAT (NEUT) % (test code = 770-8) 65.8 % IMM GRAN % (test code = 4787167458) 1.00 % LYMPH % (test code = 736-9) 21.7 % MONO % (test code = 5905-5) 10.4 % EOS % (test code = 713-8) 0.9 % BASO % (test code = 706-2) 0.2 % GRAN MAT x10^3(ANC) (test code = 4449768340) 5.72 10*3/uL 1.88-7.09 IMM GRAN x10^3 (test code = 5566734210) 0.09 10*3/uL 0.00-0.06 H LYMPH x10^3 (test code = 731-0) 1.89 10*3/uL 1.32-3.29 MONO x10^3 (test code = 742-7) 0.91 10*3/uL 0.33-0.92 EOS x10^3 (test code = 711-2) 0.08 10*3/uL 0.03-0.39 BASO x10^3 (test code = 704-7) 0.01-0.07 Lab Interpretation (test code = 05271-0) Abnormal [facility] WorthType and Screen - ONCE [id number] 07:35:00 * Test Item Value Reference Range Interpretation Comme nts ABO & RH (test code = 20) O POSITIVE IAT (test code = 1185) Negative [facility] WorthPO[facility] Urinalysis w/o Specific [id number] 21:13:00* Test Item Value Reference Range Interpretation Comme nts POCT PH U (test code = 3254) n/a 5-8 POCT U LEUK EST (test code = 3263) n/a Negative - Negative POCT U NIT (test code = 3262) n/a Negative - Negati ve POCT U PROT (test code = 3259) negative Negative - Negat eva POCT U GLU (test code = 3256) negative Negative - Negati ve POCT U KETONE (test code = 3258) n/a Negative - Neg ative POCT U BLD (test code = 3257) n/a Negative - Negati ve [facility] Urinalysis w/o Specific [id number] 21:15:00* Test Item Value Reference Range Interpretation Comme nts POCT PH U (test code = 3254) n/a 5-8 POCT U LEUK EST (test code = 3263) n/a Negative - Negative POCT U NIT (test code = 3262) n/a Negative - Negati ve POCT U PROT (test code = 3259) negative Negative - Negat eva POCT U GLU (test code = 3256) negative Negative - Negati ve POCT U KETONE (test code = 3258) n/a Negative - Neg ative POCT U BLD (test code = 3257) n/a Negative - Negati ve [facility] Urinalysis w/o Specific [id number] 18:11:00* Test Item Value Reference Range Interpretation Comme nts POCT PH U (test code = 3254) N/A 5-8 POCT U LEUK EST (test code = 3263) N/A Negative - Negative POCT U NIT (test code = 3262) N/A Negative - Negati ve POCT U PROT (test code = 3259) Negative Negative - Negat eva POCT U GLU (test code = 3256) Negative Negative - Negati ve POCT U KETONE (test code = 3258) N/A Negative - Neg ative POCT U BLD (test code = 3257) N/A Negative - Negati ve [facility] WorthDSU [id number] 18:33:04Ordered by an unspecified provider.[facility] Urinalysis w/o Specific [id number] 15:57:00* Test Item Value Reference Range Interpretation Comme nts POCT PH U (test code = 3254) N/A 5-8 POCT U LEUK EST (test code = 3263) N/A Negative - Negative POCT U NIT (test code = 3262) N/A Negative - Negati ve POCT U PROT (test code = 3259) Negative Negative - Negat eva POCT U GLU (test code = 3256) Negative Negative - Negati ve POCT U KETONE (test code = 3258) N/A Negative - Neg ative POCT U BLD (test code = 3257) N/A Negative - Negati ve [facility] Urinalysis w/o Specific [id number] 13:26:00* Test Item Value Reference Range Interpretation Comme nts POCT PH U (test code = 3254) n/a 5-8 POCT U LEUK EST (test code = 3263) n/a Negative - Negative POCT U NIT (test code = 3262) n/a Negative - Negati ve POCT U PROT (test code = 3259) negative Negative - Negat eva POCT U GLU (test code = 3256) negative Negative - Negati ve POCT U KETONE (test code = 3258) n/a Negative - Neg ative POCT U BLD (test code = 3257) n/a Negative - Negati ve [facility] Urinalysis w/o Specific [id number] 14:15:00* Test Item Value Reference Range Interpretation Comme nts POCT PH U (test code = 3254) N/A 5-8 POCT U LEUK EST (test code = 3263) N/A Negative - Negative POCT U NIT (test code = 3262) N/A Negative - Negati ve POCT U PROT (test code = 3259) Negative Negative - Negat eva POCT U GLU (test code = 3256) Negative Negative - Negati ve POCT U KETONE (test code = 3258) N/A Negative - Neg ative POCT U BLD (test code = 3257) N/A Negative - Negati ve [facility] Urinalysis w/o Specific [id number] 20:52:00* Test Item Value Reference Range Interpretation Comme nts POCT PH U (test code = 3254) n/a 5-8 POCT U LEUK EST (test code = 3263) n/a Negative - Negative POCT U NIT (test code = 3262) n/a Negative - Negati ve POCT U PROT (test code = 3259) negative Negative - Negat eva POCT U GLU (test code = 3256) negative Negative - Negati ve POCT U KETONE (test code = 3258) n/a Negative - Neg ative POCT U BLD (test code = 3257) n/a Negative - Negati ve [facility] Urinalysis w/o Specific [id number] 21:15:00* Test Item Value Reference Range Interpretation Comme nts POCT PH U (test code = 3254) N/A 5-8 POCT U LEUK EST (test code = 3263) N/A Negative - Negative POCT U NIT (test code = 3262) N/A Negative - Negati ve POCT U PROT (test code = 3259) Negative Negative - Negat eva POCT U GLU (test code = 3256) Negative Negative - Negati ve POCT U KETONE (test code = 3258) N/A Negative - Neg ative POCT U BLD (test code = 3257) N/A Negative - Negati ve [facility]SC[facility] [id number] 16:08:11Ordered by an unspecified provider.[facility] Urinalysis w/o Specific [id number] 21:10:00* Test Item Value Reference Range Interpretation Comme nts POCT PH U (test code = 3254) N/A 5-8 POCT U LEUK EST (test code = 3263) N/A Negative - Negative POCT U NIT (test code = 3262) N/A Negative - Negati ve POCT U PROT (test code = 3259) Negative Negative - Negat eva POCT U GLU (test code = 3256) Negative Negative - Negati ve POCT U KETONE (test code = 3258) N/A Negative - Neg ative POCT U BLD (test code = 3257) N/A Negative - Negati ve [facility] Urinalysis w/o Specific [id number] 21:14:00* Test Item Value Reference Range Interpretation Comme nts POCT PH U (test code = 3254) n/a 5-8 POCT U LEUK EST (test code = 3263) n/a Negative - Negative POCT U NIT (test code = 3262) n/a Negative - Negati ve POCT U PROT (test code = 3259) negative Negative - Negat eva POCT U GLU (test code = 3256) negative Negative - Negati ve POCT U KETONE (test code = 3258) n/a Negative - Neg ative POCT U BLD (test code = 3257) n/a Negative - Negati ve [facility] [id number] 20:16:00* Test Item Value Reference Range Interpretation Comme nts POCT PREG (test code = 1605) Positive On board controls acceptable with C Line (test code = 3574) Yes POCT PREG LOT # (test code = 3575) POCT PREG TEST DATE ( test code = 3576) [facility] Urinalysis w/o Specific [id number] 20:16:00* Test Item Value Reference Range Interpretation Comme nts POCT PH U (test code = 3254) N/A 5-8 POCT U LEUK EST (test code = 3263) N/A Negative - Negative POCT U NIT (test code = 3262) N/A Negative - Negati ve POCT U PROT (test code = 3259) Negative Negative - Negat eva POCT U GLU (test code = 3256) Negative Negative - Negati ve POCT U KETONE (test code = 3258) N/A Negative - Neg ative POCT U BLD (test code = 3257) N/A Negative - Negati ve [facility] History and Physical Notes Date/Time Note Provider Source 2024-03-06 07:08:01 ANTEPARTUM HISTORY & PHYSICAL IDENTIFYING DATA Cynthia Encinas is 29 year old, /White, 40w0d, female with [place] 03/06/2024, by Last Menstrual Period. : 1995 Primary Care Physician: PATIENT DOES NOT HAVE A PCP Hospital Day: 1 CHIEF COMPLAINT Induction HISTORY OF PRESENT ILLNESS 29 year old @40w0d presents for induction of labor. +FM. Some contraction pain after misoprostol. Some spotting. 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/19/2023 Normal , antepartum 08/22/2023 Operations: Past Surgical History: Procedure Laterality Date LAPAROSCOPIC CHOLECYSTECTOMY 05/14/2016 LAPAROSCOPIC CHOLECYSTECTOMY N/A 05/14/2016 Surgeon: Jennie Naranjo MD; Location: [facility] Prior surgeries at outside hospitals: none Past Medical History: Diagnosis Date Acute cholecystitis 05/12/2016 CURRENT HEALTH STATUS Medications: Current Facility-Administered Medications Medication Dose Route Frequency Last Rate Last Admin carboprost (HEMABATE) injection 250 mcg 250 mcg Intramuscular Q2HPRN D5W-LR IV infusion 1,000 mL 1,000 mL IV Infusion TITRATE 125 mL/hr at 03/06/24 0056 1,000 mL at 03/06/24 0056 FENTanyl (PF) (SUBLIMAZE) injection 100 mcg 100 mcg Slow IV Push Q2HPRN lactated ringers IV infusion 500 mL 500 mL IV Infusion PRN - SEE INSTRUCTIONS 999 mL/hr at 03/06/24 0610 500 mL at 03/06/24 0610 lidocaine 1% (PF) (XYLOCAINE) injection 0.3 mL 0.3 mL Infiltration PRN - SEE INSTRUCTIONS lidocaine 1% (XYLOCAINE) 10 mg/mL (1 %) injection 50 mL 50 mL Infiltration PRN - SEE INSTRUCTIONS methylergonovine (METHERGINE) injection 0.2 mg 0.2 mg Intramuscular Q4HPRN miSOPROStol (CYTOTEC) quarter-tablet 25 mcg 25 mcg Vaginal Q4H ABX 25 mcg at 03/06/2418 miSOPROStoL (CYTOTEC) tablet 200 mcg 200 mcg Rectal PRN oxytocin (PITOCIN) 30 units in NS 500 mL IV infusion 600 mL/hr IV Infusion PRN sodium citrate-citric acid (BICITRA) 500-334 mg/5 mL solution 30 mL 30 mL Oral PRE-PROCEDURE ONCE tranexamic acid (CYKLOKAPRON) 1,000 mg in NaCl 0.9% (NS) 250 mL piggyback 1,000 mg IV Piggyback PRN Allergies and drug reactions: Patient has no known allergies. HOME MEDICATIONS Medications Prior to Admission Medication Sig Dispense Refill Last Dose vit no.124/iron/folic ( VITAMIN ORAL) Take by mouth. Taking Last taken: none SOCIAL HISTORY Tobacco History: Social History Tobacco Use Smoking Status Never Smokeless Tobacco Never Drug History: Social History Substance and Sexual Activity Drug Use Never Alcohol History: Social History Substance and Sexual Activity Alcohol Use Not Currently FAMILY HISTORY Family History Problem Relation Age of Onset No Significant Medical Problems Mother No Significant Medical Problems Father REVIEW OF SYSTEMS General: negative Constitutional: negative Eyes: negative ENT/Mouth: negative Cardiovascular: negative Respiratory: negative Gastrointestinal:pain Genitourinary: negative Musculoskeletal: negative Skin/breast: negative Neurological: negative Psychiatric: negative Endocrine: negative Hemat/Lymph: negative Allergic/Immuno:none VITAL SIGNS BP: (101-130)/(62-96) Temp: [36.6 ?C (97.9 ?F)-36.9 ?C (98.4 ?F)] Temp source: Oral (03/06 518) Pulse: [75-112] Resp: [16-18] SpO2: [98 %-100 %] Height: [170.2 cm (5' 7")] Weight: [75.8 kg (167 lb)] BMI (calculated): [26.16] PHYSICAL EXAMINATIONS General: well-developed, well-nourished Lungs: non labored Abdomen: tenderness - normal : OB pelvic exam performed? Yes. Dilation - 1 cm Effacement - 0 % % Station - -2 Presentation (fetus 1) - vertex Extremities: no clubbing, cyanosis, or edema Neuro: cranial nerves II through XII grossly intact; sensation grossly intact; muscle strength 5 out of 5 in all four extremities REVIEW OF LABORATORY, PATHOLOGY, AND RADIOLOGY DATA Lab results: CBC BMP PT/INR WBC (10*3/?L) Date Value 03/06/2024 8.71 NA (mmol/L) Date Value 05/13/2016 135 No results found for: "PT" RBC (10*6/?L) Date Value 03/06/2024 3.56 (L) K (mmol/L) Date Value 05/13/2016 3.8 No results found for: "PTINR" PLT (10*3/?L) Date Value 03/06/2024 270 CALCIUM (mg/dL) Date Value 05/13/2016 8.4 (L) HGB (g/dL) Date Value 03/06/2024 10.3 (L) CL (mmol/L) Date Value 05/13/2016 103 aPTT HCT (%) Date Value 03/06/2024 31.6 (L) BUN (mg/dL) Date Value 05/13/2016 4 (L) No results found for: "APTTPAT" CREATININE (mg/dL) Date Value 05/13/2016 0.50 GLUCOSE (mg/dL) Date Value 05/13/2016 77 CO2 TOTAL (mmol/L) Date Value 05/13/2016 19 (L) Type & Screen Rubella Varicella ABO & RH (no units) Date Value 03/06/2024 O POSITIVE Rubella screen IgG (no units) Date Value 08/27/2023 Negative No results found for: "VZVG" No results found for: "TSABINT" Hep B HIV Syphilis No results found for: "HBS" No results found for: "HIV" No results found for: "SYPG" Group B Strep Chlamydia No results found for: "CGBS" C. trachomatis Nucleic Acid (no units) Date Value 02/11/2024 Negative X-ray results: none Placenta Accreta Screening Prior ? : No Prior Uterine Surgery?: No Placenta low lying/previa in current ? : No Screening outcome: A positive screening outcome indicates a history of prior delivery or prior uterine surgery, AND the presence of either a placenta low lying/previa or ultrasound suspicion of PASD in the current . Negative screening. DELIVERY PLAN Vaginal HEART RATE 140 cat 1 Contractions: q1-2 min ASSESSMENT AND PLAN 29 year old @40w0d presents for IOL. S/p 2 doses of misoprostol. Reassuring status EFW< 4000 grams. Pain mgmt as desired Dariela Mccullough MD [facility] Procedure Notes Date/Time Note Provider Source 2024-03-06 20:03:37 Associated Order(s): Central Neuraxial Block Central Neuraxial Block Date/Time: 03/06/2024 9:00 AM Performed by: Darian Morales MD Authorized by: Darian Morales MD Patient Location: OB Reason for Block: OB request, Patient request, Labor analgesia, Surgical anesthesia and Post-op pain management Staff: Anesthesiologist: Darian Morales MD Performed by: anesthesiologist Preanesthetic Checklist: patient identified, IV checked, risks and benefits explained, monitors and equipment checked, timeout performed, pre-op evaluation, site marked and anesthesia consent Procedure: Type of Neuraxial: Epidural and Continuous Sterility Prep cap, drape, gloves, hand hygiene and mask Sedation Level no sedation Patient Position: sitting Prep: Betadine and patient draped Monitoring: heart rate, continuous pulse ox, heart rate / toco and NIBP Location: lumbar (1-5) Lumbar: L2-L3 Approach: midline Technique: GRAZYNA air and catheter Guidance with: landmark technique} Epidural/Spinal Gilbert and/or Catheter: Epidural/Spinal Kit: [employer] ([employer]) Needle Type: Tuohy Needle Gauge: 17 G Needle Length: 3.5 in (8.89 cm) Needle Insertion Depth: 5 Catheter Type: multiport Catheter Size: 18 G Catheter at Skin Depth: 12 Number of Attempts: 1 Test Dose: lidocaine 1.5% with epinephrine 1-to-200,000 and negative Dose: 3 cc Catheter Securement Method: surgical tape and Tegaderm Assessment: Sensory Level: below T10 Lumbar: T12 Block Outcome: positive pain relief and successful block Procedure Assessment: patient tolerated procedure well with no complications Notes: Smooth and atraumatic, (+) Local, (+) STF T [facility] Notes Date/Time Note Provider Source 2024-08-24 07:58:47 Attempted to reach pt, no answer, left a vm Bc patch has been sent to her pharmacy per Dr. Colon. Jennie Prater RN 08/24/2024 7:59 AM Y BUTCHER Jennie Prater RN [facility] 2024-08-22 06:40:51 Ok to send patch rx. [facility] 2024-08-21 14:39:59 Name and verified, pt states she started her cycle today, she did pickling operator her bc, but has not started taking them. Pt states she wants to go with the control patch instead. Will advise with Dr. Mccullough and call pt back. Pt verbalized understanding. Jennie Prater RN 08/21/2024 2:41 PM [facility] 2024-08-21 14:29:43 Pt called to notify provider she did start her cycle today [facility] 2024-08-19 10:04:25 Name and veriffed, Patient states that she woke up with some slight camping with 6/10 on pain scale. Pt denies any bleeding or spotting. Pt states lmp 07/16/2024. Pt was advised she may take tylenol for cramping and to take a test. Pt verbalized understanding. Pt states she recently started on control on Saturday08/17/2024. Pt states last sexual intercourse was 2 weeks ago without protection. Pt states she will take a home test and call for appt if still no menstrual cycle to confirm . Jennie Prater RN 08/19/2024 10:10 AM Y BUTCHER Jennie Prater RN [facility] 2024-08-19 09:52:01 Pt returned the call. Would like a return call. Thank you [facility] 2024-08-19 09:45:34 Attempted to reach pt, no answer, left a vm Jennie Prater RN 08/19/2024 9:45 AM [facility] 2024-08-19 08:25:37 Cynthia Encinas is a 29 year old female Patient stated that she woke up with some slight camping but her boobs are not sore. Patient stated that she was suppose to start her period Saturday is concerned that she could possibly be . Please assist and thank you. [facility] 2024-07-29 16:15:00 Images from the original note were not included. Venipuncture collection performed by clean technique on the left anticubitus. Total of 1 attempts were made. Slight pressure and a bandage/dressing were applied to the site(s). The patient experienced no complications. The following specimens were processed according to instructions and sent to [facility] laboratories per lab order on 07/29/2024 : LT BLUE SST 1 RED LAV 2 PPT DK GREEN (LiHep) DK GREEN (SodH) HOLLAND DK BLUE (K2) DK BLUE (S) ACD Blood Culture NIPT/NTD [facility] 2024-06-19 12:09:07 [employer] message sent. Reginaldo Zuniga RN 06/19/2024 12:09 PM Y BUTCHER Reginaldo Zuniga RN [facility] 2024-06-19 10:56:09 Pt not able to make her appt for Saturday. Pt cancelled appt. Pt back has been itching since giving and she would like to know what she can take for that. [facility] 2024-05-27 15:35:27 Name and verified, pt states she has been itching since she gave . Itching is tolerable at this time. Advised pt to try cold packs and benadryl. Informed if it becomes intolerable to go to ER. Advised pt to call back if benadryl does not help so she can come in to see Dr. Mccullough for evaluation. Pt verbalized understanding. Jennie Prater RN 05/27/2024 3:37 PM Prater RN [facility] 2024-05-27 15:21:48 Pt calling nurse back. [facility] 2024-05-27 15:18:44 Attempted to reach pt, no answer, left a vm Jennie Prater RN 05/27/2024 3:18 PM [facility] 2024-05-27 15:04:49 Cynthia Encinas is a 29 year old female Pt states she has had a severely itchy back since giving . Would like to know if this is a side effect from an epidural and what can she do to alleviate the symptoms. Would like to speak with a Nurse regarding. Thank you [facility] 2024-04-30 17:02:38 Name and verified. Pt is concern that her vagina felipe with she has intercourse. Pt had 2nd degree lac- I advised that it still may be healing and to wait longer. Verbalized understanding. JANNETH RUBIO RN 04/30/2024 5:05 PM Janneth Rubio RN [facility] 2024-04-30 12:32:14 Attempted to reach pt, no answer, left a vm Jennie Prater RN 04/30/2024 12:32 PM Jennie Prater RN [facility] 2024-04-30 10:42:39 Cynthia Encinas is a 29 year old female Patient called stating she is experiencing vaginal pain and pain during intercourse. Would like to speak to a nurse regarding her symptoms. [facility] 2024-04-22 10:53:24 Name and verified, pt states she started her cycle on 04/17 and is heavily bleeding. Pt is rescheduled for 04/30. Jennie Prater RN 04/22/2024 10:54 AM Jennie Prater RN [facility] 2024-04-22 10:06:00 Cynthia Encinas is a 29 year old female Pt called to inform provider she started her period on 04/17/24 and would like to know if she needs to ivory tomorrows IUD procedure. Please call to discuss [facility] 2024-03-06 20:02:36 Patient: Cynthia Encinas Procedure Summary Date: 03/06/24 Room / Location: Anesthesia Start: 904 Anesthesia Stop: 1458 Procedure: CENTRAL NEURAXIAL BLOCK Diagnosis: Scheduled Providers: Responsible Provider: Darian Morales MD Anesthesia Type: Epidural ASA Status: 1 Anesthesia Type: Epidural Last vitals BP 124/77 (03/06/241924) Temp 37.3 ?C (99.2 ?F) (03/06/241924) Pulse 85 (03/06/241924) Resp 16 (03/06/241924) SpO2 There were no known notable events for this encounter. Anesthesia Post Evaluation Patient location during evaluation: floor Patient participation: complete - patient participated Level of consciousness: awake and alert Pain score: 0 Pain management: satisfactory to patient Multimodal analgesia pain management approach Airway patency: patent Cardiovascular status: acceptable and blood pressure returned to baseline Respiratory status: acceptable Hydration status: acceptable [facility] 2024-03-06 19:10:11 Problem: Falls, Risk of Goal: Absence of falls Outcome: Progressing as expected Problem: Bleeding, Risk of Goal: Absence of impaired coagulation signs and symptoms Outcome: Progressing as expected Goal: Absence of active bleeding Outcome: Progressing as expected Problem: Discharge Planning - Goal: Adequate for discharge Outcome: Progressing as expected Goal: Mood stable Outcome: Progressing as expected Problem: Infection Risk Goal: Absence of infection Outcome: Progressing as expected Problem: Breast-feeding - Ineffective Goal: Effective breast-feeding Outcome: Progressing as expected Problem: Discharge Planning Goal: Adequate for discharge Outcome: Progressing as expected Goal: Bilirubin within specified parameters Outcome: Progressing as expected Goal: Knowledge of discharge procedure Outcome: Progressing as expected Goal: Knowledge of care Outcome: Progressing as expected Problem: Pain Goal: Control of pain at or below patient's documented comfort goal Outcome: Progressing as expected Goal: Reduction in pain sensation Outcome: Progressing as expected Emir Romero RN [facility] 2024-03-06 17:12:37 Problem: Intrapartum process (including labor pain) Goal: Absence of or reduction of complications of labor 03/06/20241710 by Amber Driscoll RN Outcome: Resolved 03/06/2024 07 by Amber Driscoll RN Outcome: Progressing as expected 03/06/2024 0659 by Amber Driscoll RN Outcome: Progressing as expected Goal: Able to cope with pain 03/06/20241710 by Amber Driscoll, RN Outcome: Resolved 03/06/2024 07 by Amber Driscoll RN Outcome: Progressing as expected 03/06/2024 0659 by Amber Driscoll RN Outcome: Progressing as expected Goal: Adequate to move to next level of care 03/06/20241710 by Amber Driscoll RN Outcome: Resolved 03/06/2024 07 by Amber Driscoll RN Outcome: Progressing as expected 03/06/2024 0659 by Amber Driscoll, RN Outcome: Progressing as expected Goal: Reduction in pain sensation 03/06/20241710 by Amber Driscoll, RN Outcome: Resolved 03/06/2024 07 by Amber Driscoll RN Outcome: Progressing as expected 03/06/2024 0659 by Amber Driscoll RN Outcome: Progressing as expected Problem: Falls, Risk of Goal: Absence of falls 03/06/20241711 by Amber Driscoll RN Outcome: Progressing as expected 03/06/20241710 by Amber Driscoll RN Outcome: Progressing as expected 03/06/2024 0700 by Amber Driscoll RN Outcome: Progressing as expected 03/06/2024 0659 by Amber Driscoll RN Outcome: Progressing as expected Problem: Bleeding, Risk of Goal: Absence of impaired coagulation signs and symptoms 03/06/2024 171 by Amber Driscoll RN Outcome: Progressing as expected 03/06/2024 171 by Amber Driscoll RN Outcome: Progressing as expected 03/06/2024 0700 by Amber Driscoll RN Outcome: Progressing as expected Goal: Absence of active bleeding 03/06/20241711 by Amber Driscoll RN Outcome: Progressing as expected 03/06/2024 171 by Amber Driscoll RN Outcome: Progressing as expected 03/06/2024 0700 by Amber Driscoll RN Outcome: Progressing as expected Problem: Discharge Planning - Goal: Adequate for discharge Outcome: Progressing as expected Goal: Mood stable Outcome: Progressing as expected [facility] 2024-03-06 13:46:58 DELIVERY BY SPONTANEOUS VAGINAL DELIVERY Delivery Date: 03/06/2024 Delivery Time: 1:05 PM Delivery Summary The patient was admitted to the Labor & Delivery unit for Induction of labor at 40 weeks due to elective. Delivery Physician: Dariela Mccullough MD Intrapartum Anesthesia/Analgesia: Epidural Mode of Delivery: Delivery of black fetus with cephalic presentation Fetus Spontaneous vaginal delivery of head with cephalic position, right occipital posterior. As the head crowned and distended the perineum, no episiotomy was performed. A blue towel was used to protect the perineum as the head crowned and delivered. The other hand was used to exert pressure on the occiput to control the delivery of the head. The perineum was pushed with a towel-draped hand as the head and mouth was delivered over the perineum. The head was allowed to rotate externally to achieve natural body posture. Examination of neck revealed no umbilical cord. The shoulder was delivered by gentle downward traction applied to head and downward traction for the delivery of anterior shoulder. This was followed by upward traction with delivery of posterior shoulder and body. After the delivery of infant, bulb suction was performed from ororpharynx and nostril with removal of clear amniotic fluid. A normal, male was delivered. The umbilical cord was double clamped, cut and the infant was handed off the field to the circulating nurse Placenta Placenta was delivered spontaneously while the abdominal hand lifted the uterus cephalad and other hand keeping the umbilical cord slightly taut. Laceration Laceration Repair: 2nd degree perineal tear repaired with 2-0 vicryl in usual fashion. Left sulca repaired with figure of eight,same suture. . Fourth Stage Fourth stage of labor was managed by uterine massage with abdominal hand and infusion 20 units of pitocin mixed with intravenous fluid. EBL: 200 Complications: none Weight: 3680 g 1 Minute 5 Minute 10 Minute Totals: 8 9 [facility] 2024-03-06 09:50:03 Name/ MRN / Age / Gender: Cynthia Encinas, [id number] 29 year old female BMI: Estimated body mass index is 26.16 kg/m? as calculated from the following: Height as of this encounter: 1.702 m (5' 7"). Weight as of this encounter: 75.8 kg (167 lb). Allergies: Patient has no known allergies. Last Vitals: BP Readings from Last 1 Encounters: 03/06/24 127/65 Pulse Readings from Last 1 Encounters: 03/06/24 88 SpO2 Readings from Last 1 Encounters: 03/06/24 99% Date of Surgery: 03/06/2024 Surgeon: * No surgeons listed * Procedure: CENTRAL NEURAXIAL BLOCK OR Location: [place] [facility] OUT OF OR - OR LOCATION Anesthesia Preop Eval (physical exam) Anesthesia Preop: [id number] NPO Status Verified Clear Liquids: < 2 Hours PONV Risk Factors: female and non-smoker Anesthesia History Anesthesia History Negative Previous Anesthetics/Airways Cardiovascular Negative Cardiac ROS Pulmonary Negative Pulmonary ROS Neuro/Musculoskeletal Negative Neuro/Musculosketal ROS GI/Hepatic Negative GI/Hepatic ROS Hematology Negative Hematology ROS Renal Negative Renal ROS Skin Negative Skin ROS (+) Current IV access and 20g Endo/Other Negative Endo/Other ROS Other [employer]ICER P: 0 Pediatric Pediatric N/A N/A Preoperative Medication Instructions Continue taking all prescribed medications except: SARAH inhibitors, ARBs, diuretics, all oral diabetes medications Anticoagulant Therapy: Defer to surgeons Insulin: Take 1/2 dose the night prior to surgery. Hold on DOS. Phentermine: Alert [facility] anesthesiologist SGLT2 Inhibitors: "gliflozins" to be held for 3 days prior to elective surgeries GLP1 Agonosit: stop 7 days prior to surgery MAC Cases: Continue taking SARAH inhibitors and ARBs ASA Classification ASA: 1 Labs: Chemistry - CBC 03/06/2024 - - - - 8.71 10.3 (L) 270 - - - 31.6 (L) eGFR: - Date: - ANC: 5.72 Date: 03/06/2024 LFTs - Coags AST: - AP: - Prot: - Ca: - PT: - Date: - ALT: - T Paramjit: - Alb: - PTT: - Date: - PO4: - Date: - INR: - Date: - Cardiac Endocrine & other pBNP: - Date: - A1C: 5.0 Date: 08/27/2023 Trop I: - Date: - POCT A1C: - Date: - CK: - Date: - TSH: - Date: - CKMB: - Date: - FT4: - Date: - LDL: - Date: - Lact: - Date: - Procal: - Date: - Respiratory -|-|-|-|- D-dimer: - ABG Date: - Date: - Miscellaneous Type and Screen: O POSITIVE Antibody: Negative Date: 03/06/2024 POCT : Positive Date: 08/22/2023 Current Medications: No outpatient medications have been marked as taking for the 03/06/24 encounter (Hospital Encounter). Previous Surgeries: Past Surgical History: Procedure Laterality Date LAPAROSCOPIC CHOLECYSTECTOMY 05/14/2016 LAPAROSCOPIC CHOLECYSTECTOMY N/A 05/14/2016 Surgeon: Jennie Naranjo MD; Location: [facility] Anesthesia Physical Exam General no apparent distress and alert and oriented x 3 Neuro/Psych neurological Dental no notable dental hx Abdominal GI exam normal Airway Mallampati score:II TM distance:> 5 cm Neck ROM: full Mouth opening:normal Extremity Normal extremity Pulmonary pulmonary exam normal Other Cardiovascular Rhythm:regular Rate: normal Anesthesia Plan ASA Status: 1 Plan discussed during pre-op evaluation: Epidural Anesthetic plan on DOS: Epidural Anesthesia 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 Post-Operative Analgesia: routine analgesia & antiemetics Recovery Plan: PACU Additional comments: [facility] 2024-03-06 06:59:52 Problem: Intrapartum process (including labor pain) Goal: Absence of or reduction of complications of labor Outcome: Progressing as expected Goal: Able to cope with pain Outcome: Progressing as expected Goal: Adequate to move to next level of care Outcome: Progressing as expected Goal: Reduction in pain sensation Outcome: Progressing as expected Problem: Falls, Risk of Goal: Absence of falls Outcome: Progressing as expected Problem: Bleeding, Risk of Goal: Absence of impaired coagulation signs and symptoms Outcome: Progressing as expected Goal: Absence of active bleeding Outcome: Progressing as expected [facility] 2024-03-06 01:34:41 Problem: Intrapartum process (including labor pain) Goal: Absence of or reduction of complications of labor Outcome: Progressing as expected Goal: Able to cope with pain Outcome: Progressing as expected Goal: Adequate to move to next level of care Outcome: Progressing as expected Goal: Reduction in pain sensation Outcome: Progressing as expected Problem: Falls, Risk of Goal: Absence of falls Outcome: Progressing as expected [facility] Yulia Valencia RN [facility] 2024-03-05 15:45:00 ROUTINE VISIT 03/05/2024 4:30 PM SUBJECTIVE Cynthia Encinas is a 29 year old at 39w6d who presents for routine visit. She has no complaints today. Denies loss of fluid, vaginal bleeding, and signs or symptoms of pre-eclampsia. Good movement. Occasional contractions OBJECTIVE BP 119/85 (BP Location: Left arm, Patient Position: Sitting) | Pulse 107 | Resp 18 | Ht 5' 7" (1.702 m) | Wt 167 lb (75.8 kg) | LMP 05/31/2023 (Exact Date) | BMI 26.16 kg/m? Physical Exam: Gen: A&Ox3, NAD Pulm: No labored breathing Abd: Soft, gravid, NTTP, ND, no rebound or guarding Ext: No calf tenderness : cl/long/-3 ASSESSMENT: Cynthia Encinas is a 29 year old at 39w6d who presents for routine visit. Patient Active Problem List Diagnosis Normal , antepartum Rubella non-immune status, 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, antepartum Anemia of mother in , antepartum PLAN 1. Normal , antepartum --low risk NIPS --10/23/23: NL anatomy --02/17/24: 30%ile 2. 39 weeks gestation of - POCT Urinalysis w/o Specific [place] [facility] 2024-03-03 13:50:23 Name and verified. Pt would like to try spontaneously. Advised pt to keep 03/05 appt and will have to see her weekly until delivery. Will advise Dr. Mccullough. JANNETH RUBIO RN 03/03/2024 1:52 PM Janneth Rubio RN [facility] 2024-03-03 13:22:09 Pt called asking if she could r/s induction. Requesting to speak with a nurse. [facility] 2024-02-28 11:16:37 Pt is 39 weeks gestation. She reports lower abdominal cramping that last from 5170-4939 with tightening of her abdomen. She denies vaginal bleeding, leaking of fluid and reports positive movement. She is no longer having any pain or cramping. Pt would like to know what to do if pain returns. She is unsure what a contraction/labor feels like, or what to expect. Discussed with pt what it feels like to have a contraction. Pt advised to report to labor and delivery if she has vaginal bleeding, lof, decreased movement, or contractions that occur about every 6-8 minutes for one hour. Pt verbalizes understanding. Amna Watson RN [facility] 2024-02-28 10:14:44 Pt is 39 wks and states she is feeling pain and is not sure if it is contractions or mignon armstrong. She said the pain is really bad but feels like period cramps. [facility] 2024-02-25 16:15:00 ROUTINE VISIT 02/25/2024 5:05 PM SUBJECTIVE Cynthia Encinas is a 29 year old at 38w4d who presents for routine visit. She has diarrhea complaints today. Denies loss of fluid, vaginal bleeding, and signs or symptoms of pre-eclampsia. Good movement. Occasional contractions OBJECTIVE BP 109/78 (BP Location: Left arm, Patient Position: Sitting, BP CUFF SIZE: Adult Medium) | Pulse 88 | Resp 16 | Ht 5' 7" (1.702 m) | Wt 162 lb (73.5 kg) | LMP 05/31/2023 (Exact Date) | BMI 25.37 kg/m? Physical Exam: Gen: A&Ox3, NAD Pulm: No labored breathing Abd: Soft, gravid, NTTP, ND, no rebound or guarding Ext: No calf tenderness : cl/long/-3 ASSESSMENT: Cynthia Encinas is a 29 year old at 38w4d who presents for routine visit. Patient Active Problem List Diagnosis Normal , antepartum Rubella non-immune status, 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, antepartum Anemia of mother in , antepartum PLAN 1. Normal , antepartum --02/17/24: 30%ile 2. 38 weeks gestation of - POCT Urinalysis w/o Specific [place] 3. Flu vaccine need - FLU VACC ([id number]), 6 MO-64 YRS, .5ML, IM, TIV (FLUCELVAX) [facility] 2024-02-25 16:02:13 Patient is scheduled today at 4:15. Reginaldo Zuniga RN 02/25/2024 4:02 PM Reginaldo Zuniga RN [facility] 2024-02-25 12:52:59 Pt states that she is experiencing stomach pain but she does not think it is contraction pain. Pt thinks it might be something she ate last night but she keeps doing #2 and has had pain since 7 am this morning. [facility] 2024-02-18 13:15:00 ROUTINE VISIT 02/18/2024 1:24 PM SUBJECTIVE Cynthia Encinas is a 29 year old at 37w4d who presents for routine visit. She has no complaints today. Denies loss of fluid, vaginal bleeding, and signs or symptoms of pre-eclampsia. Good movement. Occasional contractions OBJECTIVE BP 131/83 | Pulse 100 | Resp 18 | Ht 5' 7" (1.702 m) | Wt 162 lb (73.5 kg) | LMP 05/31/2023 (Exact Date) | BMI 25.37 kg/m? Physical Exam: Gen: A&Ox3, NAD Pulm: No labored breathing Abd: Soft, gravid, NTTP, ND, no rebound or guarding Ext: No calf tenderness : cl/long/-3 ASSESSMENT: Cynthia Encinas is a 29 year old at 37w4d who presents for routine visit. Patient Active Problem List Diagnosis Normal , antepartum Rubella non-immune status, 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, antepartum Anemia of mother in , antepartum PLAN 1. Normal , antepartum --02/17/24: 30%ile 2. 37 weeks gestation of - POCT Urinalysis w/o Specific [place] [facility] 2024-02-17 13:30:00 Reviewed recent ultrasound results, show: Normal growth, will discuss more at next appt [facility] 2024-02-11 16:07:11 Images from the original note were not included. Returned patients call. Patient advised of results and recommendations per provider: Dariela Mccullough MD 02/11/2024 12:40 PM CDT Slightly worsened anemia. Please increase iron to twice a day. Patient verbalized understanding. Reginaldo Zuniga RN 02/11/2024 4:08 PM Reginaldo Zuniga RN [facility] 2024-02-11 16:02:09 Pt calling back due to missed call about results. [facility] 2024-02-11 11:15:00 Images from the original note were not included. Venipuncture collection performed by clean technique on the right anticubitus. Total of 1 attempts were made. Slight pressure and a bandage/dressing were applied to the site(s). The patient experienced no complications. The following specimens were processed according to instructions and sent to [facility] laboratories per lab order on 02/11/2024: LT BLUE SST RED LAV 1 PPT DK GREEN (LiHep) DK GREEN (SodH) [place] DK BLUE (K2) DK BLUE (S) ACD Blood Culture NIPT/NTD [facility] 2024-02-11 10:30:00 ROUTINE VISIT 02/11/2024 10:56 AM SUBJECTIVE Cynthia Encinas is a 28 year old at 36w4d who presents for routine visit. She has no complaints today; loss of fluid, vaginal bleeding, and signs or symptoms of pre-eclampsia. Good movement. Occasional contractions Had a fall last . OBJECTIVE BP 110/72 | Pulse 99 | Resp 18 | Ht 5' 7" (1.702 m) | Wt 160 lb (72.6 kg) | LMP 05/31/2023 (Exact Date) | BMI 25.06 kg/m? Physical Exam: Gen: A&Ox3, NAD Pulm: No labored breathing Abd: Soft, gravid, NTTP, ND, no rebound or guarding Ext: No calf tenderness : cl/long/-3 BDUS: vertex ASSESSMENT: Cynthia Encinas is a 28 year old at 36w4d who presents for routine visit. Patient Active Problem List Diagnosis Normal , antepartum Rubella non-immune status, 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, antepartum Anemia of mother in , antepartum PLAN 1. Normal , antepartum --10/23/23: 21w0d 2. Uterine size-date discrepancy in third trimester --Next growth US 02/17/24 3. Anemia of mother in , antepartum --PNV+ iron 4. Rubella non-immune status, antepartum --plan MMR pp 5. 36 weeks gestation of - Cbc with Diff; Future - Gc & Chlamydia Amplified Assay - Trichomonas Amplified Assay - Group B Streptococcus By PCR - POCT Urinalysis w/o Specific [place] [facility] 2024-02-01 16:00:35 35w1d Pt slipped and fell on concrete, landed on side, worried about well being. [place] baby kick one time on the way to ER. Report called to IMELDA Fitzpatrick Pt taken to L&D via wheelchair Carlota March RN [facility] 2024-01-24 08:00:00 ROUTINE VISIT 01/24/2024 10:03 AM SUBJECTIVE Cynthia Encinas is a 28 year old at 34w0d who presents for routine visit. She has no complaints today: loss of fluid, vaginal bleeding, and signs or symptoms of pre-eclampsia. Good movement. Occasional contractions. OBJECTIVE BP 115/75 (BP Location: Left arm, Patient Position: Sitting, BP CUFF SIZE: Adult Medium) | Pulse 76 | Resp 16 | Ht 5' 7" (1.702 m) | Wt 158 lb (71.7 kg) | LMP 05/31/2023 (Exact Date) | BMI 24.75 kg/m? Physical Exam: Gen: A&Ox3, NAD Abd: Soft, gravid, NTTP, ND, no rebound or guarding Ext: No calf tenderness : deferred ASSESSMENT: Cynthia Encinas is a 28 year old at 34w0d who presents for routine visit. Patient Active Problem List Diagnosis Normal , antepartum Rubella non-immune status, 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, antepartum Anemia of mother in , antepartum PLAN 1. Normal , antepartum 10/23/23: normal anatomy, 66%ile 2. Uterine size-date discrepancy in third trimester --growth US ordered alice - CONSULT MATERNAL MEDICINE ULTRASOUND Multiple Gestation: No 3. Rubella non-immune status, antepartum Rubella Nonimmune, will need vaccination 4. Anemia of mother in , antepartum PNV +iron 5. 34 weeks gestation of - POCT Urinalysis w/o Specific [place] - CONSULT MATERNAL MEDICINE ULTRASOUND Multiple Gestation: No [facility] [employer] 2024-01-16 12:58:04 Patient called complaining of a "pulse that feels like a heartbeat on the left side of her stomach". Patient states it comes and goes. Patient reports normal movement. Patient denies pain. Spoke with Dr. Mccullough. Per Dr. Mccullough, she is most likely feeling hiccups. Patient reassured that she is most likely feeling hiccups and will continue to feel hiccups throughout the . Patient advised if she begins having pain she will need to be seen in clinic/ER. Patient verbalized understanding. Reginaldo Zuniga RN 01/16/2024 1:10 PM [facility] 2024-01-10 09:00:00 ROUTINE VISIT 01/10/2024 10:27 AM SUBJECTIVE Cynthia Encinas is a 28 year old at 32w0d who presents for routine visit. She has no complaints today: loss of fluid, vaginal bleeding, and signs or symptoms of pre-eclampsia. Good movement. Occasional contractions. OBJECTIVE BP 98/67 | Pulse 102 | Resp 18 | Ht 5' 7" (1.702 m) | Wt 151 lb (68.5 kg) | LMP 05/31/2023 (Exact Date) | BMI 23.65 kg/m? Physical Exam: Gen: A&Ox3, NAD Abd: Soft, gravid, NTTP, ND, no rebound or guarding Ext: No calf tenderness : deferred ASSESSMENT: Cynthia Encinas is a 28 year old at 32w0d who presents for routine visit. Patient Active Problem List Diagnosis Normal , antepartum Rubella non-immune status, 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, antepartum Anemia of mother in , antepartum PLAN 1. Normal , antepartum 2. Rubella non-immune status, antepartum Rubella Nonimmune, will need vaccination 3. Anemia of mother in , antepartum --taking iron + PNV 4. 32 weeks gestation of - POCT Urinalysis w/o Specific [place] [facility] 2024-01-02 12:30:57 Returned pt's call, pt stated she is no longer traveling. Gave pt traveling restrictions for future plans. Pt verbalized understanding. Roselyn Waldrop MA [facility] 2024-01-01 10:11:59 Attempted to contact patient. No answer, VM left. Reginaldo Zuniga RN 01/01/2024 10:12 AM Reginaldo Zuniga RN [facility] 2023-12-31 16:00:54 Pt want to discuss traveling to another state. [facility] 2023-12-19 16:00:00 Age: [age] year old GA: 28w6d PLAN 1. Normal , antepartum --Normal anatomy on 10/22 2. Cystic fibrosis carrier, antepartum --aware, FOB to be testing 3. Rubella non-immune status, antepartum --plan MMR pp 4. Anemia of mother in , antepartum --PNV + iron daily 5. 28 weeks gestation of - POCT Urinalysis w/o Specific [place] - TDAP VACCINE, >10 YRS, IM --Reviewed 3rd trimester labs, normal glucose testing --Reviewed with patient FAC -- labor warnings reviewed --All questions answered [facility] 2023-11-27 07:30:00 Gave pt 50 Glucola- No Red Dye Allergy- No issues Pt started @ 0756 Pt finished @ 0757 Will draw pt @ 0857 Cadence Alejo 11/27/2023 7:58 AM T [facility] 2023-11-27 07:30:00 Images from the original note were not included. Venipuncture collection performed by clean technique on the right anticubitus. Total of 1 attempts were made. Slight pressure and a bandage/dressing were applied to the site(s). The patient experienced no complications. The following specimens were processed according to instructions and sent to [facility] laboratories per lab order on 11/27/2023 : LT BLUE SST 2 RED 1 LAV 2 PPT DK GREEN (LiHep) DK GREEN (SodH) [place] DK BLUE (K2) DK BLUE (S) ACD Blood Culture NIPT/NTD T [facility] 2023-11-12 16:15:00 ROUTINE VISIT 11/12/2023 4:16 PM KOSTAS Encinas is a 28 year old at 23w4d who presents for routine visit. She has no complaints today; denies contractions, loss of fluid, vaginal bleeding, and signs or symptoms of pre-eclampsia. Good movement. OBJECTIVE BP 109/71 | Pulse 90 | Resp 18 | Ht 5' 7" (1.702 m) | Wt 141 lb (64 kg) | LMP 05/31/2023 (Exact Date) | BMI 22.08 kg/m? Physical Exam: Gen: A&Ox3, NAD Pulm: No labored breathing Abd: Soft, gravid, NTTP, ND, no rebound or guarding Ext: No calf tenderness : deferred ASSESSMENT: Cynthia Encinas is a 28 year old at 23w4d who presents for routine visit. Patient Active Problem List Diagnosis Normal , antepartum Rubella non-immune status, 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, antepartum PLAN 1. Normal , antepartum - ADC or [place] Only - Rpr; Future - Cbc with Diff; Future - Glucose 1 Hour Post Prandial; Future - HIV 1/2 Ag-Ab with Reflex; Future - Workup, Blood Bank; Future - POCT Urinalysis w/o Specific [place] 2. Cystic fibrosis carrier, antepartum --FOB testing in December 01. 23 weeks gestation of [facility] 2023-10-23 13:00:00 Reviewed recent ultrasound results, show: Normal growth and anatomy. [facility] 2023-10-15 16:00:00 ROUTINE VISIT 10/15/2023 4:21 PM SUBJECTIVE Cynthia Encinas is a 28 year old at 19w4d who presents for routine visit. She has some complaints today; denies contractions, loss of fluid, vaginal bleeding, and signs or symptoms of pre-eclampsia. Good movement.Some lower back pain random. OBJECTIVE BP 98/64 | Pulse 86 | Resp 18 | Ht 5' 7" (1.702 m) | Wt 137 lb (62.1 kg) | LMP 05/31/2023 (Exact Date) | BMI 21.46 kg/m? Physical Exam: Gen: A&Ox3, NAD Pulm: No labored breathing Abd: Soft, gravid, NTTP, ND, no rebound or guarding Ext: No calf tenderness : deferred ASSESSMENT: Cynthia Encinas is a 28 year old at 19w4d who presents for routine visit. Patient Active Problem List Diagnosis Acute cholecystitis Normal , antepartum Rubella non-immune status, 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, antepartum PLAN 1. 19 weeks gestation of - POCT Urinalysis w/o Specific [place] 2. Normal , antepartum --reviewed with pt back changes in , recommend stretching and yoga to help --Anatomy US set for 10/22 --FOB has genetic testing appt in November, will then find out about CF --Discussed with patient plan for 3rd trimester lab testing --All questions answered [facility] [employer] 2023-09-19 17:00:00 Images from the original note were not included. Venipuncture collection performed by clean technique on the right anticubitus. Total of 2 attempts were made. Slight pressure and a bandage/dressing were applied to the site(s). The patient experienced no complications. The following specimens were processed according to instructions and sent to [facility] laboratories per lab order on today: LT BLUE SST 1 RED 1 LAV PPT DK GREEN (LiHep) DK GREEN (SodH) HOLLAND DK BLUE (K2) DK BLUE (S) ACD Blood Culture NIPT/NTD Specimens were taken to [facility] for processing [facility] [employer] 2023-09-19 16:15:00 ROUTINE VISIT 09/19/2023 7:14 PM SUBJECTIVE Cynthia Encinas is a 28 year old at 15w6d who presents for routine visit. She has no complaints today; denies contractions, loss of fluid, vaginal bleeding, and signs or symptoms of pre-eclampsia. OBJECTIVE BP 98/67 | Pulse 95 | Temp 36.7 ?C (98 ?F) (Oral) | Resp 16 | Ht 5' 7" (1.702 m) | Wt 132 lb 11.2 oz (60.2 kg) | LMP 05/31/2023 (Exact Date) | SpO2 100% | BMI 20.78 kg/m? FHT: 150 Physical Exam: Gen: A&Ox3, NAD Pulm: No labored breathing Abd: Soft, gravid, NTTP, ND, no rebound or guarding Ext: No calf tenderness ASSESSMENT: Cynthia Encinas is a 28 year old at 15w6d who presents for routine visit. Patient Active Problem List Diagnosis Acute cholecystitis Normal , antepartum Rubella non-immune status, 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, antepartum PLAN 1. Normal , antepartum - Alpha Fetoprotein-Maternal Ser; Future - POCT Urinalysis w/o Specific [place] - CONSULT MATERNAL MEDICINE ULTRASOUND Preferred Location: [place] 2. Rubella non-immune status, antepartum --Rubella Nonimmune, will need vaccination 3. Cystic fibrosis carrier, antepartum - CONSULT MATERNAL MEDICINE ULTRASOUND Preferred Location: [place] Dariela Mccullough MD [facility] 2023-09-05 16:48:35 Shukri results received via fax. Attempted to contact patient, number on file gives a busy signal. Will discuss results at next visit. Results signed, will scan and upload a copy to [facility]. Y BUTCHER [facility] 2023-08-27 11:15:00 Images from the original note were not included. Venipuncture collection performed by clean technique on the right anticubitus. Total of 1 attempts were made. Slight pressure and a bandage/dressing were applied to the site(s). The patient experienced no complications. The following specimens were processed according to instructions and sent to [facility] laboratories per lab order on 08/27/2023 Patient has been identified by and name and was provided with cup, antiseptic towelette, and clean catch instructions. 2 urine specimen(s) sent. Unpreserved 1 Urine Culture 1 Aptima tube Other urine LT BLUE SST 3 RED LAV 3 PPT DK GREEN (LiHep) DK GREEN (SodH) HOLLAND DK BLUE (K2) DK BLUE (S) ACD Blood Culture NIPT/NTD Fed ex track#[id number] [facility] 2023-08-23 13:32:40 Patient was given a kit yesterday and needs further instructions. [facility]
--- NOTE | 2024-09-22 18:44 | ER ---
Nurse's Notes [facility] Name: Cynthia Ellington Age: 29 yrs Sex: Female : 1995 Arrival Date: 09/22/2024 Time: 18:13 Bed 11 Private MD: Diagnosis: Laceration without foreign body of foot-left Presentation: 09/22 18:32 Chief complaint: Patient states: was standing at edge of water, slipped and fell. Has me1 abrasions to left forearm and laceration to left foot. Pain 7/10 now, 10/10 with weight bearing. Coronavirus screen: Vaccine status: Patient reports being unvaccinated. Ebola Screen: No symptoms or risks identified at this time. Initial Sepsis Screen: Does the patient meet any 2 criteria? HR > 90 bpm. No. Patient's initial sepsis screen is negative. Does the patient have a suspected source of infection? No. Patient's initial sepsis screen is negative. Risk Assessment: Do you want to hurt yourself or someone else? Patient reports no desire to harm self or others. Onset of symptoms was September 22, 2024 at 14:00. 18:32 Method Of Arrival: Wheelchair me1 18:32 Acuity: [place] 4 me1 Triage Assessment: 19:40 General: Appears in no apparent distress. uncomfortable, Behavior is calm, cooperative. 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 - Infectious Disease History:: Denies. - Social history:: Smoking status: Patient denies any tobacco usage or history of. Screenin:39 [facility] ED Fall Risk Assessment (Adult) History of falling in the last 3 months, cm10 including since admission No falls in past 3 months (0 pts) Confusion or Disorientation No (0 pts) Intoxicated or Sedated No (0 pts) Impaired Gait No (0 pts) Mobility Assist Device Used No (0 pt) Altered Elimination No (0 pt) Score/Fall Risk Level 0 - 2 = Low Risk Oriented to surroundings, Maintained a safe environment, Hourly rounding (assess needs \T\ fall precautionary measures) done. Abuse screen: Denies threats or abuse. Denies injuries from another. Nutritional screening: No deficits noted. Tuberculosis screening: No symptoms or risk factors identified. Assessment: 19:40 Reassessment: Patient appears in no apparent distress at this time. Patient and/or cm10 family updated on plan of care and expected duration. Pain level reassessed. Patient is alert, oriented x 3, equal unlabored respirations, skin warm/dry/pink. Pain: Complains of pain in ball of left foot. Vital Signs: 18:32 BP 135 / 80; Pulse 114; Resp 17; Temp 97.5; Pulse Ox 99% ; Weight 73.48 kg; Height 5 me1 ft. 7 in. ; Pain 7/10; 18:32 Body Mass Index 25.37 (73.48 kg, 170.18 cm) me1 18:32 Pain Scale: Adult [facility] ED Course: 18:16 Patient arrived in ED. cj3 18:22 Marci Ortega [facility]-C [facility] kb 18:22 Scotty Vines MD is Attending Physician. kb 18:23 Bhupinder Rodrigues MD is Attending Physician. kb 18:34 Triage completed. me1 18:34 Arm band placed on Patient placed in waiting room. me1 19:20 Shari Prater, RN is Primary Nurse. cm10 19:39 Patient has correct armband on for positive identification. Provided Education on: cm10 Follow-up instructions. 19:39 No provider procedures requiring assistance completed. Patient did not have IV access cm10 during this emergency room visit. Wound care: to laceration located on ball of left foot was cleaned with Hibiclens, dressed with Neosporin, 4X4s, Patient tolerated well. Administered Medications: 19:30 Drug: Doxycycline PO 100 mg PO once Route: PO; cm10 19:39 Follow up: Response: No adverse reaction cm10 Medication: 19:39 VIS not applicable for this client. cm10 Outcome: 18:44 Discharge ordered by . kb 19:40 Discharged to home via wheelchair, with family, cm10 19:40 Condition: good 19:40 Discharge instructions given to patient, Instructed on discharge instructions, follow up and referral plans. medication usage, wound care, Demonstrated understanding of instructions, follow-up care, medications, wound care, Prescriptions given X 1, 19:40 Patient left the ED. cm10 Signatures: Marci Ortega, [place] [facility]-Shari Olmedo RN RN cm10 Mable Paula RN RN me1 Annette Gilmore cj3 Corrections: (The following items were deleted from the chart) 18:35 18:34 PMHx: Unable to Obtain; mn1 mn1
--- NOTE | 2024-09-22 18:44 | EDPHYS ---
Physician Documentation [facility] Name: Cynthia Ellington Age: 29 yrs Sex: Female : 1995 Arrival Date: 09/22/2024 Time: 18:13 Bed 11 Private MD: ED Physician Bhupinder Rodrigues HPI: 09/22 18:43 This 29 yrs old Female presents to ER via Wheelchair with complaints of Left kb Foot Injury. 18:43 Pt is a 29 year old female who presents for laceration to bottom of left [place]. States she wanted it evaluated because she is concerned about infection. 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 - Infectious Disease History:: Denies. - Social history:: Smoking status: Patient denies any tobacco usage or history of. ROS: 18:38 Constitutional: As per HPI kb Exam: 18:39 Constitutional: This is a well developed, well nourished patient who is awake, alert, kb and in no acute distress. Head/Face: Normocephalic, atraumatic. ENT: Moist Mucous membranes Cardiovascular: Regular rate Respiratory: Respirations even and unlabored. No increased work of breathing. Talking in full sentences MS/ Extremity: Pulses equal, no cyanosis. Neurovascular intact. Full, normal range of motion. Neuro: Awake and alert, GCS 15, oriented to person, place, time, and situation. 18:39 Skin: injury, abrasion(s), small abrasion noted, of the palmar aspect of left forearm, laceration(s), the wound is approximately 2 cm(s), of the ball of left foot, that can be described as clean, no foreign body, irregular, without bleeding, well approximated, no repair needed, Vital Signs: 18:32 BP 135 / 80; Pulse 114; Resp 17; Temp 97.5; Pulse Ox 99% ; Weight 73.48 kg; Height 5 me1 ft. 7 in. ; Pain 7/10; 18:32 Body Mass Index 25.37 (73.48 kg, 170.18 cm) me1 18:32 Pain Scale: Adult me1 MDM: 18:23 Medical Screening Exam initiated kb 18:40 Data reviewed: vital signs, nurses notes. kb 18:41 Differential diagnosis: abrasion, laceration, contusion. Test considered but Not kb performed: X-ray: xray considered, but pt has no bony tenderness. Historians other than the Patient: Spouse/Significant Other: significant other. Counseling: I had a detailed discussion with the patient and/or guardian regarding the historical points, exam findings, and any diagnostic results supporting the discharge/admit diagnosis, the need for outpatient follow up, a family practitioner, to return to the emergency department if symptoms worsen or persist or if there are any questions or concerns that arise at home. 09/22 18:38 Order name: Wound Care: clean and dress; Complete Time: 19:39 kb Administered Medications: 19:30 Drug: Doxycycline PO 100 mg PO once Route: PO; cm10 19:39 Follow up: Response: No adverse reaction cm10 Disposition Summary: 09/22/24 18:44 Discharge Ordered Notes: Location: Home kb Condition: Stable kb Diagnosis - Laceration without foreign body of foot - left kb Followup: kb - With: Emergency Department - When: As needed - Reason: Worsening of condition Followup: kb - With: Private Physician - When: 2 - 3 days - Reason: Recheck today's complaints, Continuance of care, Re-evaluation by your physician Discharge Instructions: - Discharge Summary Sheet kb - Laceration Care, Adult, [id number] kb Forms: - Medication Reconciliation Form kb - Antibiotic Education kb - Prescription Opioid Use kb - Patient Portal Instructions kb - Leadership Thank You Letter kb Prescriptions: - Doxycycline Hyclate 100 mg Oral Tablet - take 1 tablet ORAL route every 12 hours; 20 tablet; Refills: 0, Product kb Selection Permitted Addendum: 09/23/2024 20:20 I was immediately available for consultation during this patient's visit. I did not e c2 personally see the patient or discuss the patient with the NACHO. . Signatures: Marci Ortega FNP-C FNP-Ckb Martinez, Clarissa, RN RN cm10 Mable Paula RN RN hi1 Bhupinder Rodrigues MD MD 2 Corrections: (The following items were deleted from the chart) 09/22 18:35 18:34 PMHx: Unable to Obtain; me1 me1
[2024-09-22] MEDS ORDERED: DOXYCYCLINE 100 MG CAP PO ONE (19:25)
[2024-09-22 20:13] VITALS: BP 135/80; TEMP 97.5; O2SAT 99
== END 2024-09-22 19:40 | disposition home or self-care (01) ==
LOC: ER 18:13
DX: S91.312A Laceration without foreign body, left foot, initial encounter (principal); S50.812A Abrasion of left forearm, initial encounter